=== PATIENT | female | born 1935 | race Caucasian/White ===

== ENCOUNTER 2018-07-02 14:08 | Emergency (ER) | payer MEDICARE, OTHER ==
[2018-07-02] MEDS ORDERED: Sodium Chloride 0.9% 10 ML Syringe FLUSH PRN (14:28)
[2018-07-02] MEDS ORDERED: Aspirin 81 MG Tab.Chew PO ONE (14:36)
[2018-07-02 14:50] LABS: CHLORIDE,CL 100 mmol/L (98-107); SODIUM,NA 134 mmol/L (136-145)
--- NOTE | 2018-07-02 15:39 | EDM.PDOC ---
ED HPI GENERAL MEDICAL PROBLEM - General Chief Complaint: Chest Pain Stated Complaint: weakness, chest pain Time Seen by Provider: 07/02/18 14:12 Source of Information: Reports: Patient History Limitations: Reports: No Limitations - History of Present Illness INITIAL COMMENTS - FREE TEXT/NARRATIVE: Patient is a 83-year-old female who is seen in the ER with a three-day history of chest discomfort went this morning to her primary care was referred to the ER for evaluation at this time patient was recently hospitalized at [facility] has history of MLL Onset: Gradual Duration: Day(s): Location: Reports: Chest, Generalized Quality: Reports: Ache, Pressure Severity: Moderate Improves with: Reports: None Worsens with: Reports: None Context: Reports: Other (Chest pain) Associated Symptoms: Reports: Chest Pain, Shortness of Breath (With activity), Weakness 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 upon 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 to ED Chest Pain Score (Numeric/FACES): 4 - Related Data Allergies Allergy/AdvReac Type Severity Reaction Status Date / Time bacitracin Allergy Rash Verified 07/02/18 14:32 [From Neosporin ([id number])] bacitracin zinc Allergy Rash Verified 07/02/18 14:32 [From Neosporin ([id number])] neomycin sulfate Allergy Rash Verified 07/02/18 14:32 [From Neosporin ([id number])] polymyxin B Allergy Rash Verified 07/02/18 14:32 [From Neosporin ([id number])] Home Meds: Home Meds Folic Acid 1 mg PO DAILY 06/11/14 [History] Calcium Carbonate [Calcium] 1,000 mg PO DAILY 04/08/15 [History] Levothyroxine 25 mcg PO ACBREAKFAST 04/08/15 [History] Acetaminophen/Diphenhydramine [Tylenol Pm Ex-Strength Caplet] 1 each PO BEDTIME PRN 04/09/15 [History] Cholecalciferol (Vitamin D3) [Vitamin D3] 2,000 unit PO BID 04/09/15 [History] Allopurinol [Zyloprim] 100 mg PO DAILY 06/22/17 [History] Magnesium Oxide [Magnesium] 1 tab PO BID 06/22/17 [History] Benzonatate [Tessalon Perle] 1 cap PO Q8HR 05/23/18 [History] Hydrocodone/Acetaminophen [Hydrocodon-Acetaminophen 5-325] 1 tab PO Q6HR PRN [History] Spironolactone [Aldactone] 25 mg PO QAM 05/23/18 [History] Past Medical History HEENT History: Reports: Cataract, Impaired Vision Other HEENT History: Wears glasses Cardiovascular History: Reports: High Cholesterol, Hypertension, Other (See Below) Other Cardiovascular History: Leakly heart valve Respiratory History: Reports: Bronchitis, Recurrent, Pneumonia, Recurrent Genitourinary History: Reports: Other (See Below) Other Genitourinary History: CKD. Stress Incontinence Musculoskeletal History: Reports: Arthritis, RA Neurological History: Reports: None Endocrine/Metabolic History: Reports: Hypothyroidism Hematologic History: Reports: Idiopathic Thrombocytopenia Oncologic (Cancer) History: Reports: Leukemia Other Oncologic History: CLL - Past Surgical History HEENT Surgical History: Reports: Adenoidectomy, Tonsillectomy Other Respiratory Surgeries/Procedures: surgery to remove the infection from lining of lungs GI Surgical History: Reports: Cholecystectomy, Colonoscopy, EGD, Polypectomy Social & Family History - Caffeine Use Caffeine Use: Reports: Coffee - Living Situation & Occupation Living situation: Reports: Occupation: Retired ED ROS GENERAL - Review of Systems Review Of Systems: See Below Constitutional: Reports: Weakness. Denies: Weight Gain HEENT: Reports: No Symptoms Respiratory: Reports: Shortness of Breath Cardiovascular: Reports: Chest Pain Endocrine: Reports: No Symptoms GI/Abdominal: Reports: No Symptoms : Reports: No Symptoms Musculoskeletal: Reports: No Symptoms Skin: Reports: No Symptoms Neurological: Reports: No Symptoms Psychiatric: Reports: No Symptoms ED EXAM, GENERAL - Physical Exam Exam: See Below Exam Limited By: No Limitations General Appearance: Alert, WD/WN, No Apparent Distress Ears: Normal External Exam, Normal Canal, Hearing Grossly Normal, Normal TMs Nose: Normal Inspection, Normal Mucosa, No Blood Throat/Mouth: Normal Inspection, Normal Lips, Normal Teeth, Normal Gums, Normal Oropharynx, Normal Voice, No Airway Compromise Head: Atraumatic, Normocephalic Neck: Normal Inspection, Supple, Non-Tender, Full Range of Motion Respiratory/Chest: No Respiratory Distress, Decreased Breath Sounds, Rales, Other (Hypoxia patient on 4 L) Cardiovascular: Regular Rate, Rhythm, Systolic Murmur (Aortic systolic murmur 2/ 6) GI/Abdominal: Normal Bowel Sounds, Soft, Non-Tender, No Organomegaly, No Distention, No Abnormal Bruit, No Mass (Female) Exam: Deferred Rectal (Female) Exam: Deferred Back Exam: Normal Inspection, Full Range of Motion, NT Extremities: Pedal Edema Neurological: Alert, Oriented, CN II-XII Intact, Normal Cognition, Normal Gait, Normal Reflexes, No Motor/Sensory Deficits Psychiatric: Normal Affect, Normal Mood Skin Exam: Warm, Dry, Intact, Normal Color, No Rash Lymphatic: No Adenopathy Course - Vital Signs Last Recorded V/S: Last Vital Signs Temp 97.7 F 07/02/18 14:33 Pulse 58 L 07/02/18 15:21 Resp 20 07/02/18 15:21 BP 105/51 L 07/02/18 15:21 Pulse Ox 97 07/02/18 15:21 - Orders/Labs/Meds Orders: Active Orders 24 hr Category Date Time Status Cardiac Monitoring [RC] . DIRECTED Care 07/02/18 14:27 Active EKG Documentation Completion [RC] ASDIRECTED Care 07/02/18 14:14 Active Oxygen Therapy Adult [Oxygen Therapy, ED] [RC] Care 07/02/18 14:28 Active ASDIRECTED Peripheral IV Care [RC] . DIRECTED Care 07/02/18 14:28 Active Chest 1V Frontal [CR] Stat Exams 07/02/18 14:23 Taken CULTURE BLOOD [BC] Stat Lab 07/02/18 15:45 Received CULTURE BLOOD [BC] Stat Lab 07/02/18 15:59 Received FREE T3 [REF] Stat Lab 07/02/18 14:20 Received Dextrose 5%-0.45% NaCl [Dextrose 5%-1/2 NS] 1,000 ml Med 07/02/18 16:00 Active IV ASDIRECTED Furosemide [Lasix] Med 07/03/18 08:00 Active 40 mg IVPUSH DAILY Sodium Chloride 0.9% [Saline Flush] Med 07/02/18 14:28 Active 10 ml FLUSH ASDIRECTED PRN Blood Culture x2 Reflex Set [OM.PC] Stat Oth 07/02/18 15:32 Ordered Peripheral IV Insertion Adult [OM.PC] Routine Oth 07/02/18 14:28 Ordered Medication Orders Furosemide (Lasix) 40 mg IVPUSH DAILY GUME Dextrose/Sodium Chloride (Dextrose 5%-1/2 Ns) 1,000 mls @ 125 mls/hr IV ASDIRECTED GUME Sodium Chloride (Saline Flush) 10 ml FLUSH ASDIRECTED PRN PRN Reason: Keep Vein Open Labs: Laboratory Tests 07/02/18 07/02/18 07/02/18 Range/Units 14:20 14:20 14:20 WBC 140.3 H* (4.0-10.2) K/uL RBC 4.09 (3.77-5.09) M/uL Hgb 11.5 L D (11.7-15.5) g/dL Hct 36.3 (34.0-46.0) % MCV 88.8 D (84.0-98.0) fL MCH 28.1 L (28.2-33.3) pg MCHC 31.7 (31.7-36.0) g/dL RDW 27.1 H (11.2-14.1) % Plt Count 9 L* D (150-350) K/uL Add Manual Diff Yes Neutrophils % (Manual) 28 Band Neutrophils % 12 Lymphocytes % (Manual) Cancelled Atypical Lymphs % Cancelled Immat Monocytes % (Man) Cancelled Monocytes % (Manual) 60 Eosinophils % (Manual) Cancelled Basophils % (Manual) Cancelled Metamyelocytes % Cancelled Myelocytes % Cancelled Promyelocytes % Cancelled Blast Cells % Cancelled Plasma Cell % (Manual) Cancelled Immature Gran # Cancelled Absolute Neutrophils 56.1200 Absolute Seg Neuts Cancelled Band Neutrophils # Cancelled Lymphocytes # (Manual) Cancelled Monocytes # (Manual) 84.1800 Eosinophils # (Manual) Cancelled Basophils # (Manual) Cancelled Absolute Metamyelocyte Cancelled Absolute Myelocytes Cancelled Absolute Promyelocytes Cancelled Absolute Plasma Cells Cancelled Nucleated RBCs Cancelled Differential Comment Cancelled Pathologist Review Cancelled Bilobed Neuts Cancelled Hypersegmented Neuts Cancelled Variant Lymphocytes Cancelled Atypical Lymphocytes Cancelled Abnormal Lymphocytes Cancelled Reactive Lymphocytes Cancelled Vacuolated Monocytes Cancelled Absolute Blast Cells Cancelled Toxic Granulation Cancelled WBC Morphology Comment Cancelled Plt Morphology Comment Cancelled Polychromasia Moderate Hypochromasia Cancelled Poikilocytosis Cancelled Basophilic Stippling Cancelled Anisocytosis Marked Microcytosis Cancelled Macrocytosis Cancelled Spherocytes Cancelled Micro Spherocytes Cancelled Siderocytes Cancelled Sickle Cells Cancelled Target Cells Cancelled Tear Drop Cells Cancelled Ovalocytes Cancelled Stomatocytes Cancelled Harrah Cells Cancelled Elliptocytes Cancelled Acanthocytes (Spur) Cancelled Rouleaux Cancelled Schistocytes Cancelled RBC Morph Comment Cancelled Smear Path Review Cancelled PT 12.0 (9.5-12.0) SEC INR 1.1 APTT 29.2 (21.0-31.3) SEC D-Dimer, Quantitative (0-400) ng/mL Sodium 134 L (136-145) mmol/L Potassium 5.3 H (3.5-5.1) mmol/L Chloride 100 (98-107) mmol/L Carbon Dioxide 25.4 (21.0-32.0) mmol/L BUN 88 H D (7-18) mg/dL Creatinine 1.75 H (0.51-1.17) mg/dL Est Cr Clr Drug Dosing TNP Estimated GFR (MDRD) 28 mL/min Glucose 94 (74-106) mg/dL Lactic Acid (0.4-2.0) mmol/L Calcium 9.0 (8.5-10.1) mg/dL Magnesium 2.4 (1.8-2.4) mg/dL Total Bilirubin 0.9 (0.2-1.0) mg/dL AST 91 H (15-37) U/L ALT 39 (12-78) U/L Alkaline Phosphatase 254 H (46-116) IU/L Creatine Kinase 37 (26-308) U/L Creatine Kinase Index 1.9 (0.0-2.5) % CK-MB (CK-2) 0.70 (0.00-3.60) ng/mL Troponin I 0.000 (0.000-0.056) ng/mL NT-Pro-B Natriuret Pep 4121 H (0-125) pg/mL Total Protein 7.3 (6.4-8.2) g/dL Albumin 2.7 L (3.4-5.0) g/dL Free T4 (0.76-1.46) ng/dL TSH, Ultra Sensitive 28.535 H (0.358-3.740) mIU/mL Slides for Path Review Yes 07/02/18 07/02/18 07/02/18 Range/Units 14:20 14:20 14:20 WBC (4.0-10.2) K/uL RBC (3.77-5.09) M/uL Hgb (11.7-15.5) g/dL Hct (34.0-46.0) % MCV (84.0-98.0) fL MCH (28.2-33.3) pg MCHC (31.7-36.0) g/dL RDW (11.2-14.1) % Plt Count (150-350) K/uL Add Manual Diff Neutrophils % (Manual) Band Neutrophils % Lymphocytes % (Manual) Atypical Lymphs % Immat Monocytes % (Man) Monocytes % (Manual) Eosinophils % (Manual) Basophils % (Manual) Metamyelocytes % Myelocytes % Promyelocytes % Blast Cells % Plasma Cell % (Manual) Immature Gran # Absolute Neutrophils Absolute Seg Neuts Band Neutrophils # Lymphocytes # (Manual) Monocytes # (Manual) Eosinophils # (Manual) Basophils # (Manual) Absolute Metamyelocyte Absolute Myelocytes Absolute Promyelocytes Absolute Plasma Cells Nucleated RBCs Differential Comment Pathologist Review Bilobed Neuts Hypersegmented Neuts Variant Lymphocytes Atypical Lymphocytes Abnormal Lymphocytes Reactive Lymphocytes Vacuolated Monocytes Absolute Blast Cells Toxic Granulation WBC Morphology Comment Plt Morphology Comment Polychromasia Hypochromasia Poikilocytosis Basophilic Stippling Anisocytosis Microcytosis Macrocytosis Spherocytes Micro Spherocytes Siderocytes Sickle Cells Target Cells Tear Drop Cells Ovalocytes Stomatocytes Harrah Cells Elliptocytes Acanthocytes (Spur) Rouleaux Schistocytes RBC Morph Comment Smear Path Review PT (9.5-12.0) SEC INR APTT (21.0-31.3) SEC D-Dimer, Quantitative 840 H (0-400) ng/mL Sodium (136-145) mmol/L Potassium (3.5-5.1) mmol/L Chloride (98-107) mmol/L Carbon Dioxide (21.0-32.0) mmol/L BUN (7-18) mg/dL Creatinine (0.51-1.17) mg/dL Est Cr Clr Drug Dosing Estimated GFR (MDRD) mL/min Glucose (74-106) mg/dL Lactic Acid 2.0 (0.4-2.0) mmol/L Calcium (8.5-10.1) mg/dL Magnesium (1.8-2.4) mg/dL Total Bilirubin (0.2-1.0) mg/dL AST (15-37) U/L ALT (12-78) U/L Alkaline Phosphatase (46-116) IU/L Creatine Kinase (26-308) U/L Creatine Kinase Index (0.0-2.5) % CK-MB (CK-2) (0.00-3.60) ng/mL Troponin I (0.000-0.056) ng/mL NT-Pro-B Natriuret Pep (0-125) pg/mL Total Protein (6.4-8.2) g/dL Albumin (3.4-5.0) g/dL Free T4 1.08 (0.76-1.46) ng/dL TSH, Ultra Sensitive (0.358-3.740) mIU/mL Slides for Path Review Meds: Medications Generic Name Dose Route Start Last Admin Trade Name Freq PRN Reason Stop Dose Admin Furosemide 40 mg 07/03/18 08:00 Lasix IVPUSH DAILY GUME Dextrose/Sodium Chloride 1,000 mls @ 125 mls/hr 07/02/18 16:00 Dextrose 5%-1/2 Ns IV ASDIRECTED GUME Sodium Chloride 10 ml 07/02/18 14:28 Saline Flush FLUSH ASDIRECTED PRN Keep Vein Open Discontinued Medications Generic Name Dose Route Start Last Admin Trade Name Freq PRN Reason Stop Dose Admin Aspirin 324 mg 07/02/18 14:36 07/02/18 14:38 Aspirin PO 07/02/18 14:37 162 mg ONETIME ONE Administration Departure - Departure Time of Disposition: 15:53 Disposition: DC/Tfer to [facility] 02 Reason for Transfer *Q: Other (per oncologist request due to hx of MLL) Condition: Good Clinical Impression: Thrombocytopenia, CHF, Congestive heart failure Chest pain Qualifiers: Chest pain type: other chest pain Qualified Code(s): R07.89 - Other chest pain ; R07.8 - Other chest pain Referrals: Robert Faulkner PA [Primary Care Provider] - Forms: ED Department Discharge Care Plan Goals: Patient transferred to [facility] per oncologist request for further workup, evaluation, and treatment. - Problem List & Annotations (1) Chest pain SNOMED Code(s): 71753447 Code(s): R07.9 - CHEST PAIN, UNSPECIFIED Status: Acute Current Visit: Yes (2) CHF, Congestive heart failure SNOMED Code(s): 60282721 Code(s): I50.9 - HEART FAILURE, UNSPECIFIED Status: Acute Priority: High Current Visit: Yes Onset Date: 06/11/14 Annotation/Comment:: Mild CHF by chest x-ray and BNP with chest x-ray revealed no acute changes I will give her Lasix 40 mg now (3) Hypothyroidism determined by thyroid function test SNOMED Code(s): 37485643 Code(s): E03.9 - HYPOTHYROIDISM, UNSPECIFIED; R94.6 - ABNORMAL RESULTS OF THYROID FUNCTION STUDIES Status: Acute Current Visit: Yes Annotation/ Comment:: We'll wait to the T3 and T4 are back before changing her medications (4) Thrombocytopenia SNOMED Code(s): 157211072 Code(s): D69.6 - THROMBOCYTOPENIA, UNSPECIFIED Status: Acute Current Visit: Yes (5) Hyperkalemia SNOMED Code(s): 29676861 Code(s): E87.5 - HYPERKALEMIA Status: Acute Current Visit: Yes Annotation/Comment:: Lasix 40 IV now - Problem List Review Problem List Initiated/Reviewed/Updated: Yes - My Orders Last 24 Hours: My Active Orders 07/02/18 14:14 EKG Documentation Completion [RC] ASDIRECTED 07/02/18 14:20 FREE T3 [REF] Stat 07/02/18 14:23 Chest 1V Frontal [CR] Stat 07/02/18 14:27 Cardiac Monitoring [RC] . DIRECTED 07/02/18 14:28 Oxygen Therapy Adult [Oxygen Therapy, ED] [RC] ASDIRECTED Peripheral IV Care [RC] . DIRECTED Sodium Chloride 0.9% [Saline Flush] 10 ml FLUSH ASDIRECTED PRN Peripheral IV Insertion Adult [OM.PC] Routine 07/02/18 15:32 Blood Culture x2 Reflex Set [OM.PC] Stat 07/02/18 15:45 CULTURE BLOOD [BC] Stat 07/02/18 15:59 CULTURE BLOOD [BC] Stat 07/02/18 16:00 Dextrose 5%-0.45% NaCl [Dextrose 5%-1/2 NS] 1,000 ml IV ASDIRECTED 07/03/18 08:00 Furosemide [Lasix] 40 mg IVPUSH DAILY - Assessment/Plan Admission H&P: Please use this note as an admission H&P Last 24 Hours: My Active Orders 07/02/18 14:14 EKG Documentation Completion [RC] ASDIRECTED 07/02/18 14:20 FREE T3 [REF] Stat 07/02/18 14:23 Chest 1V Frontal [CR] Stat 07/02/18 14:27 Cardiac Monitoring [RC] . DIRECTED 07/02/18 14:28 Oxygen Therapy Adult [Oxygen Therapy, ED] [RC] ASDIRECTED Peripheral IV Care [RC] . DIRECTED Sodium Chloride 0.9% [Saline Flush] 10 ml FLUSH ASDIRECTED PRN Peripheral IV Insertion Adult [OM.PC] Routine 07/02/18 15:32 Blood Culture x2 Reflex Set [OM.PC] Stat 07/02/18 15:45 CULTURE BLOOD [BC] Stat 07/02/18 15:59 CULTURE BLOOD [BC] Stat 07/02/18 16:00 Dextrose 5%-0.45% NaCl [Dextrose 5%-1/2 NS] 1,000 ml IV ASDIRECTED 07/03/18 08:00 Furosemide [Lasix] 40 mg IVPUSH DAILY Plan: Discuss with hematology and Dr. Reis hospitalist will transfer to [facility] will start her on Lasix 49 and continue monitoring
[2018-07-02] MEDS ORDERED: Dextrose 5%-0.45% NaCl 1,000 ML IV SCH (16:00)
[2018-07-02 20:45] VITALS: BP 101/51
[2018-07-03] MEDS ORDERED: Furosemide 40 MG/4 ML VIAL IVPUSH SCH (08:00)
== END 2018-07-02 16:00 ==
LOC: LL.ED 14:08
DX: I11.0 Hypertensive heart disease with heart failure (principal); I50.9 Heart failure, unspecified; D69.6 Thrombocytopenia, unspecified; Z88.8 Allergy status to other drugs, medicaments and biological substances; Z88.1 Allergy status to other antibiotic agents; Z79.899 Other long term (current) drug therapy
CPT/HCPCS: 36000; 36415; 71045; 80053; 82550; 82553; 83605; 83735; 83880; 84439; 84443; 84481; 84484; 85025; 85379; 85610; 85730; 87040; 93005; 99285; A9270-GY

== ENCOUNTER 2018-07-09 18:49 | Inpatient (IN) | payer MEDICARE, OTHER ==
--- NOTE | 2018-07-09 19:43 | EDM.PDOC ---
ED HPI GENERAL MEDICAL PROBLEM - General Chief Complaint: Respiratory Problem Stated Complaint: SOB Time Seen by Provider: 07/09/18 19:29 Source of Information: Reports: Patient History Limitations: Reports: No Limitations - History of Present Illness INITIAL COMMENTS - FREE TEXT/NARRATIVE: Patient comes to the ER, brought by , for complaint of SOB. Seen for similar complaint (in addition to weakness) last week Jul 02. Transferred to [facility] for evaluation. Patient said that she was seen by multiple people. She was informed that there was nothing more that could be done for her CLL by Heme-Onc. Cardiology made no changes. Nephrology was recommending additional testing but patient says at this point she is interested in comfort care. She denies any other changes. Uncertain if she has lost any additional weight recently. Admits that food is of no interest to her and has no appeal. No fevers/chills. No pain complaints. Denies HEENT changes. No cough/sputum production. No chest pain/palpitation. Does have increasing lower leg edema. No bowel/bladder changes. Does not produce much in the way of bowel movements. Denies neuro changes/focal weakness. Is not on home O2. Generalized Pain Score (Numeric/FACES): 6 - Related Data Allergies Allergy/AdvReac Type Severity Reaction Status Date / Time bacitracin Allergy Rash Verified 07/09/18 18:49 [From Neosporin ([id number])] bacitracin zinc Allergy Rash Verified 07/09/18 18:49 [From Neosporin ([id number])] neomycin sulfate Allergy Rash Verified 07/09/18 18:49 [From Neosporin ([id number])] polymyxin B Allergy Rash Verified 07/09/18 18:49 [From Neosporin ([id number])] Home Meds: Home Meds Folic Acid 1 mg PO DAILY 06/11/14 [History] Levothyroxine 25 mcg PO ACBREAKFAST 04/08/15 [History] Allopurinol [Zyloprim] 100 mg PO DAILY 06/22/17 [History] Magnesium Oxide [Magnesium] 1 tab PO BID 06/22/17 [History] Spironolactone [Aldactone] 25 mg PO QAM 05/23/18 [History] Furosemide 20 mg PO DAILY 07/09/18 [History] Metoprolol Succinate [Toprol XL] 25 mg PO DAILY 07/09/18 [History] Past Medical History HEENT History: Reports: Cataract, Impaired Vision Other HEENT History: Wears glasses Cardiovascular History: Reports: High Cholesterol, Hypertension, Other (See Below) Other Cardiovascular History: Leaky heart valve Respiratory History: Reports: Bronchitis, Recurrent, Pneumonia, Recurrent Genitourinary History: Reports: Other (See Below) Other Genitourinary History: CKD. Stress Incontinence Musculoskeletal History: Reports: Arthritis, RA Neurological History: Reports: None Endocrine/Metabolic History: Reports: Hypothyroidism Hematologic History: Reports: Idiopathic Thrombocytopenia Oncologic (Cancer) History: Reports: Leukemia Other Oncologic History: CLL - Past Surgical History HEENT Surgical History: Reports: Adenoidectomy, Tonsillectomy Other Respiratory Surgeries/Procedures: surgery to remove the infection from lining of lungs GI Surgical History: Reports: Cholecystectomy, Colonoscopy, EGD, Polypectomy Social & Family History - Family History Family Medical History: Noncontributory - Tobacco Use Smoking Status *Q: Never Smoker - Caffeine Use Caffeine Use: Reports: Coffee - Alcohol Use Alcohol Use History: No - Recreational Drug Use Recreational Drug Use: No Drug Use in Last 12 Months: No - Living Situation & Occupation Living situation: Reports: Occupation: Retired ED ROS GENERAL - Review of Systems Review Of Systems: ROS reveals no pertinent complaints other than HPI. ED EXAM, GENERAL - Physical Exam Exam: See Below Exam Limited By: No Limitations General Appearance: Alert, No Apparent Distress, Cachetic Eye Exam: Bilateral Eye: EOMI, PERRL Ears: Normal External Exam, Normal Canal, Hearing Grossly Normal Nose: No: Nasal Deformity, Nasal Swelling, Nasal Drainage Throat/Mouth: Normal Inspection, Normal Lips, Normal Teeth, Normal Voice, No Airway Compromise Head: Atraumatic, Normocephalic Neck: Supple, Non-Tender Respiratory/Chest: No Respiratory Distress, Lungs Clear, Normal Breath Sounds, No Accessory Muscle Use Cardiovascular: Regular Rate, Rhythm, No Murmur Peripheral Pulses: 1+: Radial (L), Radial (R), Dorsalis Pedis (L), Dorsalis Pedis (R) GI/Abdominal: Soft, Non-Tender, Abnormal Bowel Sounds (decreased throughout) (Female) Exam: Deferred Rectal (Female) Exam: Deferred Back Exam: Other (sore over tailbone area). No: CVA Tenderness (L), CVA Tenderness (R), Muscle Spasm, Paraspinal Tenderness, Vertebral Tenderness Extremities: Non-Tender, Normal Capillary Refill, Pedal Edema (moderate, bilateral ankles/feet) Neurological: Alert, Oriented, Other (equal strength bilaterally. Gait not tested) Psychiatric: Normal Affect, Normal Mood Skin Exam: Warm, Dry, Intact, Normal Color EKG INTERPRETATION EKG Date: 07/09/18 Time: 18:55 Rhythm: Other (Sinus bradycardia) Rate (Beats/Min): 59 [place]: Normal P-Wave: Present QRS: Normal ST-T: Normal QT: Normal Comparison: NA - No Prior EKG Course - Orders/Labs/Meds Orders: Active Orders 24 hr Category Date Time Status EKG Documentation Completion [RC] ASDIRECTED Care 07/09/18 19:03 Active CXR [Chest 2V] [CR] Stat Exams 07/09/18 19:04 Ordered CBC WITH AUTO DIFF [HEME] Stat Lab 07/09/18 19:04 Ordered CK W CKMB [CHEM] Stat Lab 07/09/18 19:04 Ordered CMP [COMPREHENSIVE METABOLIC PN,CMP] [CHEM] Stat Lab 07/09/18 19:04 Ordered MANUAL DIFFERENTIAL QA/NC [HEME] Stat Lab 07/09/18 19:40 Results PRO B-TYPE NATRIUR PEPT,BNPPRO [CHEM] Stat Lab 07/09/18 19:04 Ordered TROPONIN I [CHEM] Stat Lab 07/09/18 19:04 Ordered UA W/MICROSCOPIC [URIN] Stat Lab 07/09/18 19:05 Ordered Labs: Laboratory Tests 07/09/18 Range/Units 19:40 WBC 166.4 H* (4.0-10.2) K/uL RBC 3.82 (3.77-5.09) M/uL Hgb 11.1 L (11.7-15.5) g/dL Hct 35.4 (34.0-46.0) % MCV 92.7 D (84.0-98.0) fL MCH 29.1 (28.2-33.3) pg MCHC 31.4 L (31.7-36.0) g/dL RDW 29.0 H (11.2-14.1) % Plt Count 10 L* (150-350) K/uL Add Manual Diff Yes - Radiology Interpretation Free Text/Narrative:: Chest Xray did not show evidence of CHF exacerbation/pneumothorax/pneumonia - Re-Assessments/Exams Free Text/Narrative Re-Assessment/Exam: 07/09/18 20:55 Patient noted to have significant elevation of WBC at 166, low platelets of 10, proBNP elevated at 5581, and potassium elevated at 6.2. Bun and Cr elevated at 11 and 2.09 respectively. This reflects a worsening of renal function. Transfer to [facility] discussed with patient and she refused. Patient prefers to stay here and be on comfort care. DNR/DNI. Refuses Kayexalate for the hyperkalemia tonight. Is ok with receiving IV fluids. DDimer added to labs as PE is possible, however given the very low platelets this is unlikely. If positive, would need to refer patient to [place] for additional workup given her poor renal function and inability to have IV contrast. Again, patient is currently refusing transfer and prefers comfort care. Is willing to visit with hospice care. Departure - Departure Time of Disposition: 20:30 Disposition: Admitted As Inpatient 67 Clinical Impression: CLL (chronic lymphocytic leukemia), Hypoxemia, CHF, Congestive heart failure, Thrombocytopenia, Hyperkalemia, Renal insufficiency - Discharge Information *PRESCRIPTION DRUG MONITORING PROGRAM REVIEWED*: Not Applicable *COPY OF PRESCRIPTION DRUG MONITORING REPORT IN PATIENT CHRISTINE: Not Applicable Referrals: Robert Faulkner PA [Primary Care Provider] - Forms: ED Department Discharge - Problem List & Annotations (1) CLL (chronic lymphocytic leukemia) SNOMED Code(s): 96295766 Code(s): C91.90 - LYMPHOID LEUKEMIA, UNSPECIFIED NOT HAVING ACHIEVED REMISSION Status: Chronic Priority: High Current Visit: Yes Annotation/ Comment:: Patient declines further care for CLL (2) Failure to thrive SNOMED Code(s): 62017332 Code(s): NNK7989 - Status: Chronic Priority: High Current Visit: Yes Annotation/Comment:: Weight loss, decreased PO intake, weakness. Comfort care. (3) CHF, Congestive heart failure SNOMED Code(s): 86751501 Code(s): I50.9 - HEART FAILURE, UNSPECIFIED Status: Chronic Priority: Low Current Visit: Yes Onset Date: 06/11/14 Annotation/Comment:: Hx CHF. Diuretic noted to increase patient's BUN/Cr. BNP elevated. Will continue cautious diuretic administration however will be unable to increase dose given kidney issues. Review of [facility] chart from her recent admission showed quick elevation in Bun/Cr whenever diuretics increased. (4) Hyperkalemia SNOMED Code(s): 20814679 Code(s): E87.5 - HYPERKALEMIA Status: Acute Priority: High Current Visit: Yes Annotation/Comment:: Suspect secondary to patient's CKD and poor PO intake. Patient declines Kayexalate. Will give IV fluids cautiously given hx of CHF. (5) Hypoxemia SNOMED Code(s): 234234694 Code(s): R09.02 - HYPOXEMIA Status: Acute Priority: High Current Visit : Yes Annotation/Comment:: Suspect secondary to patient's CHF and CLL. Improved with O2 supplementation. (6) Thrombocytopenia SNOMED Code(s): 026922815 Code(s): D69.6 - THROMBOCYTOPENIA, UNSPECIFIED Status: Chronic Priority: Low Current Visit: Yes Annotation/Comment:: Observe. Comfort care. (7) HTN, Benign hypertension SNOMED Code(s): 71701945 Code(s): I10 - ESSENTIAL (PRIMARY) HYPERTENSION Status: Chronic Priority : Medium Current Visit: No Annotation/Comment:: currently stable (8) Hypothyroid SNOMED Code(s): 40649865 Code(s): E03.9 - HYPOTHYROIDISM, UNSPECIFIED Status: Chronic Priority: Low Current Visit: Yes Annotation/Comment:: Most recent labs from last week. Recheck in one month. Qualifiers: Hypothyroidism type: unspecified Qualified Code(s): E03.9 - Hypothyroidism , unspecified (9) Need for comfort care SNOMED Code(s): 165036734, 762577478 Code(s): ALU6292 - Status: Acute Priority: High Current Visit: Yes Annotation/Comment:: Consult Hospice tomorrow (10) Chronic kidney disease SNOMED Code(s): 564773012 Code(s): N18.9 - CHRONIC KIDNEY DISEASE, UNSPECIFIED Status: Chronic Priority: Low Current Visit: Yes Annotation/Comment:: Comfort measures. Qualifiers: Chronic kidney disease stage: stage 3 (moderate) Qualified Code(s): N18.3 - Chronic kidney disease, stage 3 (moderate) - Problem List Review Problem List Initiated/Reviewed/Updated: Yes - My Orders Last 24 Hours: My Active Orders 07/09/18 19:03 EKG Documentation Completion [RC] ASDIRECTED 07/09/18 19:04 CXR [Chest 2V] [CR] Stat CBC WITH AUTO DIFF [HEME] Stat CK W CKMB [CHEM] Stat CMP [COMPREHENSIVE METABOLIC PN,CMP] [CHEM] Stat PRO B-TYPE NATRIUR PEPT,BNPPRO [CHEM] Stat TROPONIN I [CHEM] Stat 07/09/18 19:05 UA W/MICROSCOPIC [URIN] Stat 07/09/18 19:40 MANUAL DIFFERENTIAL QA/NC [HEME] Stat - Assessment/Plan Admission H&P: Please use this note as an admission H&P Last 24 Hours: My Active Orders 07/09/18 19:03 EKG Documentation Completion [RC] ASDIRECTED 07/09/18 19:04 CXR [Chest 2V] [CR] Stat CBC WITH AUTO DIFF [HEME] Stat CK W CKMB [CHEM] Stat CMP [COMPREHENSIVE METABOLIC PN,CMP] [CHEM] Stat PRO B-TYPE NATRIUR PEPT,BNPPRO [CHEM] Stat TROPONIN I [CHEM] Stat 07/09/18 19:05 UA W/MICROSCOPIC [URIN] Stat 07/09/18 19:40 MANUAL DIFFERENTIAL QA/NC [HEME] Stat Assessment:: as above Plan: as above. Anticipate 3-4 day stay inpatient while the above issues are addressed and hospice care explored.
[2018-07-09] MEDS ORDERED: Ondansetron 4 MG Tab.DIS PO PRN (21:27)
[2018-07-09] MEDS ORDERED: Ondansetron 4 MG/2 ML SDV IVPUSH PRN (21:27)
[2018-07-09] MEDS ORDERED: Bisacodyl 5 MG Tab PO PRN (21:27)
[2018-07-09] MEDS ORDERED: Sennosides 8.6 MG Tab PO PRN (21:27)
[2018-07-09] MEDS ORDERED: LORazepam 2 MG/ML SDV IV PRN (21:27)
[2018-07-09] MEDS ORDERED: Albuterol/Ipratropium 3.0-0.5 MG/3 ML Neb Soln NEB PRN (21:27)
[2018-07-09] MEDS ORDERED: Acetaminophen/HYDROcodone 325-5 MG Tab PO PRN (21:27)
[2018-07-09] MEDS ORDERED: Sodium Chloride 0.9% 1,000 ML IV ONE (21:34)
[2018-07-09] MEDS: Morphine 2 MG/ML Syringe IVPUSH PRN (22:33)
[2018-07-10] MEDS: Morphine 2 MG/ML Syringe IVPUSH PRN ×4 (00:17→11:29)
[2018-07-10] MEDS: Levothyroxine 25 MCG Tab PO SCH (08:16)
[2018-07-10] MEDS: Furosemide 20 MG Tab PO SCH (08:16)
[2018-07-10] MEDS: Magnesium Oxide 400 MG Tab PO SCH ×2 (08:16→17:07)
[2018-07-10] MEDS: Spironolactone 25 MG Tab PO SCH (08:16)
[2018-07-10] MEDS: Allopurinol 100 MG Tab PO SCH (08:17)
[2018-07-10] MEDS: Sodium Chloride 0.9% 10 ML Syringe FLUSH PRN (11:29)
--- NOTE | 2018-07-10 14:38 | PCM.PN ---
- General Info Date of Service: 07/10/18 Admission Dx/Problem (Free Text): Admitted for treatment of hyperkalemia, dehydration, and weakness secondary to advancing CLL. Hypoxixia. Worsening renal function. Subjective Update: Patient feels more comfortable. MS helping with pain and shortness of breath. Able to eat today. No bowel movement. Urinating ok. Functional Status: Reports: Pain Controlled, Tolerating Diet, Urinating - Review of Systems General: Reports: Weakness, Fatigue, Appetite (poor). Denies: Fever, Chills, Night Sweats HEENT: Reports: No Symptoms Pulmonary: Reports: Shortness of Breath. Denies: Pleuritic Chest Pain, Cough, Sputum, Hemoptysis, Wheezing Cardiovascular: Reports: Dyspnea on Exertion, Edema. Denies: Chest Pain, Palpitations, PND, Lightheadedness Gastrointestinal: Reports: Decreased Appetite Genitourinary: Reports: No Symptoms Musculoskeletal: Reports: Back Pain (gets sore in low back/buttock area from laying in bed) Skin: Reports: No Symptoms Neurological: Reports: Difficulty Walking (weakness/swollen feet) Psychiatric: Reports: No Symptoms - Patient Data Vitals - Most Recent: Last Vital Signs Temp 36.4 C 07/10/18 11:22 Pulse 58 L 07/10/18 11:22 Resp 18 07/10/18 11:22 BP 103/49 L 07/10/18 11:22 Pulse Ox 97 07/10/18 11:22 Weight - Most Recent: 43.227 kg I&O - Last 24 Hours: Intake & Output 07/09/18 07/10/18 07/10/18 22:59 06:59 14:59 Intake Total 100 1076 360 Output Total 200 200 200 Balance -100 876 160 Lab Results Last 24 Hours: Laboratory Results - last 24 hr 07/09/18 07/09/18 07/09/18 Range/Units 19:40 19:40 19:42 WBC 166.4 H* (4.0-10.2) K/uL RBC 3.82 (3.77-5.09) M/uL Hgb 11.1 L (11.7-15.5) g/dL Hct 35.4 (34.0-46.0) % MCV 92.7 D (84.0-98.0) fL MCH 29.1 (28.2-33.3) pg MCHC 31.4 L (31.7-36.0) g/dL RDW 29.0 H (11.2-14.1) % Plt Count 10 L* (150-350) K/uL Add Manual Diff Yes Neutrophils % (Manual) 16 Band Neutrophils % 13 Lymphocytes % (Manual) 68 Monocytes % (Manual) 3 Nucleated RBCs 32 D-Dimer, Quantitative 1150 H (0-400) ng/mL Sodium 137 (136-145) mmol/L Potassium 6.2 H* (3.5-5.1) mmol/L Chloride 103 (98-107) mmol/L Carbon Dioxide 21.1 (21.0-32.0) mmol/L BUN 111 H* (7-18) mg/dL Creatinine 2.09 H (0.51-1.17) mg/dL Est Cr Clr Drug Dosing 13.97 mL/min Estimated GFR (MDRD) 23 mL/min Glucose 124 H (74-106) mg/dL Calcium 8.7 (8.5-10.1) mg/dL Total Bilirubin 0.8 (0.2-1.0) mg/dL AST 91 H (15-37) U/L ALT 41 (12-78) U/L Alkaline Phosphatase 250 H (46-116) IU/L Creatine Kinase 84 (26-308) U/L Creatine Kinase Index 1.0 (0.0-2.5) % CK-MB (CK-2) 0.80 (0.00-3.60) ng/mL Troponin I 0.000 (0.000-0.056) ng/mL NT-Pro-B Natriuret Pep 5581 H (0-125) pg/mL Total Protein 6.8 (6.4-8.2) g/dL Albumin 2.5 L (3.4-5.0) g/dL Specimen Type Urine Color Urine Appearance Urine pH (5.0-9.0) Ur Specific [place] (1.005-1.030) Urine Protein (NEGATIVE) mg/dL Urine Glucose (UA) (NEGATIVE) mg/dL Urine Ketones (NEGATIVE) mg/dL Urine Occult Blood (NEGATIVE) Urine Nitrite (NEGATIVE) Urine Bilirubin (NEGATIVE) Urine Urobilinogen (0.2-1.0) E.U./dL Ur Leukocyte Esterase (NEGATIVE) Urine RBC /HPF Urine WBC /HPF Ur Epithelial Cells /LPF Urine Bacteria (NONE TO FEW) /HPF 07/09/18 07/10/18 07/10/18 Range/Units 21:00 10:10 10:10 WBC 156.4 H* (4.0-10.2) K/uL RBC 3.42 L (3.77-5.09) M/uL Hgb 10.1 L (11.7-15.5) g/dL Hct 31.9 L (34.0-46.0) % MCV 93.3 (84.0-98.0) fL MCH 29.5 (28.2-33.3) pg MCHC 31.7 (31.7-36.0) g/dL RDW 28.7 H (11.2-14.1) % Plt Count 20 L* (150-350) K/uL Add Manual Diff Neutrophils % (Manual) Band Neutrophils % Lymphocytes % (Manual) Monocytes % (Manual) Nucleated RBCs D-Dimer, Quantitative (0-400) ng/mL Sodium 138 (136-145) mmol/L Potassium 5.9 H* (3.5-5.1) mmol/L Chloride 105 (98-107) mmol/L Carbon Dioxide 21.7 (21.0-32.0) mmol/L BUN 104 H* (7-18) mg/dL Creatinine 2.00 H (0.51-1.17) mg/dL Est Cr Clr Drug Dosing 14.60 mL/min Estimated GFR (MDRD) 24 mL/min Glucose 97 (74-106) mg/dL Calcium 8.1 L (8.5-10.1) mg/dL Total Bilirubin (0.2-1.0) mg/dL AST (15-37) U/L ALT (12-78) U/L Alkaline Phosphatase (46-116) IU/L Creatine Kinase (26-308) U/L Creatine Kinase Index (0.0-2.5) % CK-MB (CK-2) (0.00-3.60) ng/mL Troponin I (0.000-0.056) ng/mL NT-Pro-B Natriuret Pep (0-125) pg/mL Total Protein (6.4-8.2) g/dL Albumin (3.4-5.0) g/dL Specimen Type Urinvoid Urine Color Yellow Urine Appearance Clear Urine pH 5.5 (5.0-9.0) Ur Specific [place] 1.010 (1.005-1.030) Urine Protein Trace H (NEGATIVE) mg/dL Urine Glucose (UA) Negative (NEGATIVE) mg/dL Urine Ketones Negative (NEGATIVE) mg/dL Urine Occult Blood Trace-lysed H (NEGATIVE) Urine Nitrite Negative (NEGATIVE) Urine Bilirubin Negative (NEGATIVE) Urine Urobilinogen 0.2 (0.2-1.0) E.U./dL Ur Leukocyte Esterase Negative (NEGATIVE) Urine RBC 0-5 /HPF Urine WBC 0-5 /HPF Ur Epithelial Cells Rare /LPF Urine Bacteria Few (NONE TO FEW) /HPF Med Orders - Current: Current Medications Hydrocodone Bitart/Acetaminophen ([place] 325-5 Mg) 1 tab PO Q4H PRN PRN Reason: Pain (moderate 4-6) Albuterol/Ipratropium (Duoneb 3.0-0.5 Mg/3 Ml) 3 ml NEB Q4H PRN PRN Reason: Dyspnea Allopurinol (Zyloprim) 100 mg PO DAILY [facility] Last Admin: 07/10/18 08:17 Dose: 100 mg Bisacodyl (Dulcolax) 5 mg PO DAILY PRN PRN Reason: Constipation Furosemide (Lasix) 20 mg PO DAILY [facility] Last Admin: 07/10/18 08:16 Dose: 20 mg Levothyroxine Sodium (Levothyroxine) 25 mcg PO ACBREAKFAST [facility] Last Admin: 07/10/18 08:16 Dose: 25 mcg Lorazepam (Ativan) 1 mg IV Q6H PRN PRN Reason: Nausea/Vomiting Magnesium Oxide (Magnesium Oxide) 400 mg PO BID [facility] Last Admin: 07/10/18 08:16 Dose: 400 mg Morphine Sulfate (Morphine) 2 mg IVPUSH Q2H PRN PRN Reason: Pain (severe 7-10) Last Admin: 07/10/18 11:29 Dose: 2 mg Ondansetron HCl (Zofran Odt) 4 mg PO Q6H PRN PRN Reason: Nausea/Vomiting Ondansetron HCl (Zofran) 4 mg IVPUSH Q6H PRN PRN Reason: Nausea/Vomiting Senna (Senna) 8.6 mg PO BID PRN PRN Reason: Constipation Sodium Chloride (Saline Flush) 10 ml FLUSH ASDIRECTED PRN PRN Reason: Keep Vein Open Last Admin: 07/10/18 11:29 Dose: 10 ml Spironolactone (Aldactone) 25 mg PO QAM [facility] Last Admin: 07/10/18 08:16 Dose: 25 mg Discontinued Medications Sodium Chloride (Normal Saline) 1,000 mls @ 100 mls/hr IV .BOLUS ONE Stop: 07/10/18 07:33 Last Admin: 07/09/18 22:33 Dose: 100 mls/hr - Exam Quality Assessment: Supplemental Oxygen, DVT Prophylaxis (patient refuses TEDs/ DVT prophylaxis). No: Skin Breakdown General: Alert, Oriented, Cooperative, No Acute Distress HEENT: Pupils Equal, Pupils Reactive, EOMI, Mucous Membr. Moist/[place] Neck: Supple Lungs: Clear to Auscultation, Normal Respiratory Effort Cardiovascular: Regular Rate, Regular Rhythm GI/Abdominal Exam: Normal Bowel Sounds, Soft, Non-Tender, No Distention (Female) Exam: Deferred Back Exam: Other (sore over sacral area/buttocks with pressure). No: CVA Tenderness (L), CVA Tenderness (R), Muscle Spasm Extremities: Pedal Edema (pitting). No: Lida's Sign, Increased Warmth, Mottled , Pallor, Redness Peripheral Pulses: 1+: Radial (L), Radial (R) Skin: Warm, Dry, Intact Neurological: No New Focal Deficit Psy/Mental Status: Alert, Normal Affect, Normal Mood, Other (fatigued in appearance) - Problem List & Annotations (1) CLL (chronic lymphocytic leukemia) SNOMED Code(s): 64369533 Code(s): C91.90 - LYMPHOID LEUKEMIA, UNSPECIFIED NOT HAVING ACHIEVED REMISSION Status: Chronic Priority: High Current Visit: Yes Annotation/ Comment:: Patient declines further care for CLL (2) Failure to thrive SNOMED Code(s): 50898087 Code(s): UXL7152 - Status: Chronic Priority: High Current Visit: Yes Qualifiers: Failure to thrive age range: in adult Qualified Code(s): R62.7 - Adult failure to thrive Annotation/Comment:: Weight loss, decreased PO intake, weakness. Comfort care. (3) CHF, Congestive heart failure SNOMED Code(s): 85655544 Code(s): I50.9 - HEART FAILURE, UNSPECIFIED Status: Chronic Priority: Low Current Visit: Yes Onset Date: 06/11/14 Annotation/Comment:: Hx CHF. Diuretic noted to increase patient's BUN/Cr. BNP elevated. Will continue cautious diuretic administration however will be unable to increase dose given kidney issues. Review of [facility] chart from her recent admission showed quick elevation in Bun/Cr whenever diuretics increased. (4) Hyperkalemia SNOMED Code(s): 77684528 Code(s): E87.5 - HYPERKALEMIA Status: Acute Priority: High Current Visit: Yes Annotation/Comment:: Suspect secondary to patient's CKD/lasix and poor PO intake. Patient declines Kayexalate. Single liter of NS given since admission. Potassium slightly improved. (5) Hypoxemia SNOMED Code(s): 161139391 Code(s): R09.02 - HYPOXEMIA Status: Acute Priority: High Current Visit : Yes Annotation/Comment:: Suspect secondary to patient's CHF and CLL. Improved with O2 supplementation. Will need to be discharged home with supplemental O2 (6) Thrombocytopenia SNOMED Code(s): 813473384 Code(s): D69.6 - THROMBOCYTOPENIA, UNSPECIFIED Status: Chronic Priority: Low Current Visit: Yes Annotation/Comment:: Observe. Comfort care. (7) HTN, Benign hypertension SNOMED Code(s): 74000629 Code(s): I10 - ESSENTIAL (PRIMARY) HYPERTENSION Status: Chronic Priority : Medium Current Visit: No Annotation/Comment:: currently stable (8) Hypothyroid SNOMED Code(s): 26625271 Code(s): E03.9 - HYPOTHYROIDISM, UNSPECIFIED Status: Chronic Priority: Low Current Visit: Yes Qualifiers: Hypothyroidism type: unspecified Qualified Code(s): E03.9 - Hypothyroidism , unspecified Annotation/Comment:: Most recent labs from last week. Recheck in one month depending on patient's clinical course. (9) Need for comfort care SNOMED Code(s): 798101093, 654493933 Code(s): EQP8390 - Status: Acute Priority: High Current Visit: Yes Annotation/Comment:: Consult Hospice tomorrow (10) Chronic kidney disease SNOMED Code(s): 264326540 Code(s): N18.9 - CHRONIC KIDNEY DISEASE, UNSPECIFIED Status: Chronic Priority: Low Current Visit: Yes Qualifiers: Chronic kidney disease stage: stage 3 (moderate) Qualified Code(s): N18.3 - Chronic kidney disease, stage 3 (moderate) Annotation/Comment:: Comfort measures. Exacerbated with diuretics. (11) Elevated d-dimer SNOMED Code(s): 309422007 Code(s): R79.89 - OTHER SPECIFIED ABNORMAL FINDINGS OF BLOOD CHEMISTRY Status: Acute Priority: Low Current Visit: Yes Annotation/Comment:: Patient refuses further investigation to rule out PE. Does not want to undergo additional testing/transfer to [facility]. - Problem List Review Problem List Initiated/Reviewed/Updated: Yes - My Orders Last 24 Hours: My Active Orders 07/09/18 19:04 CXR [Chest 2V] [CR] Stat 07/09/18 21:27 Up With Assistance [RC] ASDIRECTED Consult to Case Management/Mirror Department Supervisor [CONS] Routine Acetaminophen/HYDROcodone [[place] 325-5 MG] 1 tab PO Q4H PRN Albuterol/Ipratropium [DuoNeb 3.0-0.5 MG/3 ML] 3 ml NEB Q4H PRN Bisacodyl [Dulcolax] 5 mg PO DAILY PRN LORazepam [Ativan] 1 mg IV Q6H PRN Morphine 2 mg IVPUSH Q2H PRN Ondansetron [Zofran ODT] 4 mg PO Q6H PRN Ondansetron [Zofran] 4 mg IVPUSH Q6H PRN Sennosides [Senna] 8.6 mg PO BID PRN VTE Mechanical Contraindications [AST] Per Unit Routine VTE Pharmacological Contraindications [AST] Per Unit Routine Resuscitation Status Routine 07/09/18 21:28 Patient Status [ADT] Routine Oxygen Therapy [RC] 2300 Vital Signs [RC] Q8HR 07/09/18 21:29 Intake and Output [RC] QSHIFT Pulse Oximetry [RC] PRN 07/09/18 21:31 Antiembolic Hose [OM.PC] Per Unit Routine 07/09/18 21:33 Antiembolic Devices [RC] 08,20 RT Aerosol Therapy [RC] ASDIRECTED 07/09/18 21:34 Comfort Measures [OM.PC] Routine 07/10/18 07:30 Levothyroxine 25 mcg PO ACBREAKFAST 07/10/18 08:00 Allopurinol [Zyloprim] 100 mg PO DAILY Furosemide [Lasix] 20 mg PO DAILY Magnesium Oxide 400 mg PO BID Spironolactone [Aldactone] 25 mg PO QAM 07/10/18 08:19 Sodium Chloride 0.9% [Saline Flush] 10 ml FLUSH ASDIRECTED PRN 07/10/18 Breakfast Regular Diet [DIET] - Assessment Assessment:: As above - Plan Plan:: As above. Comfort care measures. Consult pending with Hospice to set patient up at home for Hospice care.
[2018-07-10] MEDS ORDERED: Morphine Oral Concentrate 20 MG/ML 30 ML Bottle PO PRN (15:00)
[2018-07-11] MEDS: Magnesium Oxide 400 MG Tab PO SCH ×2 (08:15→17:46)
[2018-07-11] MEDS: Furosemide 20 MG Tab PO SCH (08:16)
[2018-07-11] MEDS: Allopurinol 100 MG Tab PO SCH (08:16)
[2018-07-11] MEDS: Levothyroxine 25 MCG Tab PO SCH (08:16)
[2018-07-11] MEDS: Spironolactone 25 MG Tab PO SCH (08:17)
[2018-07-11] MEDS ORDERED: Sodium Polystyrene Sulfonate 15 GM/60 ML Susp 60 ML Bot PO ONE (10:00)
--- NOTE | 2018-07-11 10:19 | PCM.PN ---
- General Info Date of Service: 07/11/18 Admission Dx/Problem (Free Text): 1. End-stage CLL 2. Hypoxia 3. Chronic renal insufficiency Functional Status: Reports: Pain Controlled, Tolerating Diet, Ambulating, Urinating. Denies: New Symptoms, Incentive Spirometry Pain Score: 0 - Review of Systems General: Reports: Weakness (Stable chronic), Fatigue (Stable). Denies: Fever, Malaise, Chills, Night Sweats, Appetite (Adequate per patient, borderline per nurse's) HEENT: Reports: Glasses. Denies: Dysphasia, Eye Pain, Sinus Congestion, Visual Changes Pulmonary: Denies: Shortness of Breath, Pleuritic Chest Pain, Cough, Sputum, Hemoptysis, Wheezing Cardiovascular: Reports: Dyspnea on Exertion, Edema (Stable dependent). Denies : Chest Pain, Palpitations, Orthopnea, Lightheadedness Gastrointestinal: Reports: Constipation (No bowel movement for 4 days). Denies : Abdominal Pain, Decreased Appetite, Diarrhea, Difficulty Swallowing, Flatus, Hematochezia, Melena, Nausea, Vomiting Genitourinary: Reports: Incontinence. Denies: Dysuria, Frequency, Burning, Urgency, Hematuria, Retention, Flank Pain Musculoskeletal: Reports: No Symptoms. Denies: Neck Pain, Shoulder Pain, Back Pain, Leg Pain, Joint Swelling Skin: Reports: No Symptoms. Denies: Diaphoresis, Bruising Neurological: Reports: Paresthesia (Stable by history), Difficulty Walking ( Stable), Weakness (Stable). Denies: Confusion Psychiatric: Denies: Confusion, Depression, Anxiety, Agitation, Cravings, Hallucinations, Suicidal Ideation, Homicidal Ideation - Patient Data Vitals - Most Recent: Last Vital Signs Temp 36.3 C 07/11/18 08:00 Pulse 59 L 07/11/18 08:00 Resp 17 07/11/18 08:00 BP 112/57 L 07/11/18 08:00 Pulse Ox 97 07/11/18 08:00 Vital Signs - 24 hr 07/10/18 07/10/18 07/11/18 11:22 16:00 01:04 Temperature [ 36.4 C 36.1 C 37.0 C Temporal] Pulse, 58 L 60 60 Peripheral [ Left Pulse Oximetry] Respiratory 18 24 H 20 Rate Blood Pressure 103/49 L 90/48 L 122/59 L [Right Upper Arm] O2 Sat by Pulse 97 99 97 Oximetry 07/11/18 08:00 Temperature [ 36.3 C Temporal] Pulse, 59 L Peripheral [ Left Pulse Oximetry] Respiratory 17 Rate Blood Pressure 112/57 L [Right Upper Arm] O2 Sat by Pulse 97 Oximetry Weight - Most Recent: 43.227 kg I&O - Last 24 Hours: Intake & Output 07/10/18 07/11/18 07/11/18 22:59 06:59 14:59 Intake Total 180 350 600 Output Total 400 250 100 Balance -220 100 500 Imaging Impressions - Last 24 Hours: None Lab Results Last 24 Hours: Laboratory Results - last 24 hr 07/10/18 07/10/18 Range/Units 10:10 10:10 WBC 156.4 H* (4.0-10.2) K/uL RBC 3.42 L (3.77-5.09) M/uL Hgb 10.1 L (11.7-15.5) g/dL Hct 31.9 L (34.0-46.0) % MCV 93.3 (84.0-98.0) fL MCH 29.5 (28.2-33.3) pg MCHC 31.7 (31.7-36.0) g/dL RDW 28.7 H (11.2-14.1) % Plt Count 20 L* (150-350) K/uL Sodium 138 (136-145) mmol/L Potassium 5.9 H* (3.5-5.1) mmol/L Chloride 105 (98-107) mmol/L Carbon Dioxide 21.7 (21.0-32.0) mmol/L BUN 104 H* (7-18) mg/dL Creatinine 2.00 H (0.51-1.17) mg/dL Est Cr Clr Drug Dosing 14.60 mL/min Estimated GFR (MDRD) 24 mL/min Glucose 97 (74-106) mg/dL Calcium 8.1 L (8.5-10.1) mg/dL Stone Results Last 24 Hours: None Med Orders - Current: Current Medications Hydrocodone Bitart/Acetaminophen ([place] 325-5 Mg) 1 tab PO Q4H PRN PRN Reason: Pain (moderate 4-6) Last Admin: 07/11/18 08:17 Dose: 1 tab Albuterol/Ipratropium (Duoneb 3.0-0.5 Mg/3 Ml) 3 ml NEB Q4H PRN PRN Reason: Dyspnea Allopurinol (Zyloprim) 100 mg PO DAILY ON LICENSE OF [facility] Last Admin: 07/11/18 08:16 Dose: 100 mg Bisacodyl (Dulcolax) 5 mg PO DAILY PRN PRN Reason: Constipation Furosemide (Lasix) 40 mg IVPUSH BID ON LICENSE OF [facility] Levothyroxine Sodium (Levothyroxine) 25 mcg PO ACBREAKFAST ON LICENSE OF [facility] Last Admin: 07/11/18 08:16 Dose: 25 mcg Lorazepam (Ativan) 1 mg IV Q6H PRN PRN Reason: Nausea/Vomiting Magnesium Oxide (Magnesium Oxide) 400 mg PO BID ON LICENSE OF [facility] Last Admin: 07/11/18 08:15 Dose: 400 mg Morphine Sulfate (Morphine 20 Mg/Ml Soln) 2.5 mg PO Q2H PRN PRN Reason: pain, shortness of breath Ondansetron HCl (Zofran Odt) 4 mg PO Q6H PRN PRN Reason: Nausea/Vomiting Ondansetron HCl (Zofran) 4 mg IVPUSH Q6H PRN PRN Reason: Nausea/Vomiting Senna (Senna) 8.6 mg PO BID PRN PRN Reason: Constipation Sodium Chloride (Saline Flush) 10 ml FLUSH ASDIRECTED PRN PRN Reason: Keep Vein Open Last Admin: 07/10/18 11:29 Dose: 10 ml Sodium Polystyrene Sulfonate (Kayexalate) 45 gm PO NOW ONE Stop: 07/11/18 10:01 Spironolactone (Aldactone) 25 mg PO QAM ON LICENSE OF [facility] Last Admin: 07/11/18 08:17 Dose: 25 mg Discontinued Medications Furosemide (Lasix) 20 mg PO DAILY ON LICENSE OF [facility] Last Admin: 07/11/18 08:16 Dose: 20 mg Sodium Chloride (Normal Saline) 1,000 mls @ 100 mls/hr IV .BOLUS ONE Stop: 07/10/18 07:33 Last Admin: 07/09/18 22:33 Dose: 100 mls/hr Morphine Sulfate (Morphine) 2 mg IVPUSH Q2H PRN PRN Reason: Pain (severe 7-10) Last Admin: 07/10/18 11:29 Dose: 2 mg - Exam Quality Assessment: Supplemental Oxygen, DVT Prophylaxis. No: Central Line/PICC , Urine Catheter, Skin Breakdown, Restraints General: Alert, Oriented, Cooperative, No Acute Distress HEENT: Pupils Equal, Pupils Reactive, EOMI, Mucous Membr. Moist/[place]. No: Scleral Icterus Neck: Supple, Trachea Midline, No Thyromegaly, Carotid Bruit (Mild bilateral carotid bruits). No: Lymphadenopathy Lungs: Normal Respiratory Effort, Rales (Mild bilateral basilar). No: Rhonchi, Rub, Wheezing Cardiovascular: Regular Rate, Regular Rhythm, No Murmurs. No: Gallops, Rubs GI/Abdominal Exam: Normal Bowel Sounds, Soft, Non-Tender, No Organomegaly, No Distention, No Abnormal Bruit, No Mass, Pelvis Stable. No: Guarding (Female) Exam: Deferred Back Exam: Normal Inspection, Full Range of Motion. No: CVA Tenderness (L), CVA Tenderness (R), Muscle Spasm Extremities: Pedal Edema (Stable +1+2 pitting bilateral pedal edema). No: Non- Tender (Stable chronic bilateral feet paresthesias and toe discomfort without evidence of inflammation or gout-type symptoms. Moderate onychomycosis in the toenails), Lida's Sign Peripheral Pulses: 1+: Dorsalis Pedis (L), Dorsalis Pedis (R), 2+: Radial (L), Radial (R) Skin: Warm, Dry, Intact. No: Ecchymosis Neurological: No New Focal Deficit Psy/Mental Status: Alert, Normal Affect, Normal Mood. No: Hallucinations, Withdrawal Symptoms - Problem List & Annotations (1) CLL (chronic lymphocytic leukemia) SNOMED Code(s): 49445099 Code(s): C91.90 - LYMPHOID LEUKEMIA, UNSPECIFIED NOT HAVING ACHIEVED REMISSION Status: Chronic Priority: High Current Visit: Yes Annotation/ Comment:: End-stage exacerbation of her CLL with patient refusing further care, oncology consultation, etc. Family is in agreement with this treatment plan with NO CODE STATUS as below. (2) Need for comfort care SNOMED Code(s): 023433484, 754763070 Code(s): HGR0533 - Status: Acute Priority: High Current Visit: Yes Annotation/Comment:: Patient initially wanted to go home on home health and hospice. However this morning after extensive discussion with the patient and multiple family members she has elected to try for either long-term or swing bed care under hospice in this facility. Hospice consultation has been ordered for today. Patient initially refused any treatment measures, however she does agree today to treatment with IV Lasix, Kayexalate, etc. secondary to her significant renal failure and hyperkalemia. The patient and her family are aware of the risk of progression of her CHF and possible cardiac arrhythmia secondary to her hyperkalemia, etc. as above. Additional day of inpatient care is required secondary to above treatment measures. Chest x-ray and blood work has been ordered for the a.m. Emotional and spiritual support was provided to the patient and multiple family members. does need continued (3) CHF, Congestive heart failure SNOMED Code(s): 62885981 Code(s): I50.9 - HEART FAILURE, UNSPECIFIED Status: Chronic Priority: Low Current Visit: Yes Onset Date: 06/11/14 Annotation/Comment:: CHF is clinically stable despite her renal failure with no chest pain or anginal type symptoms.. Note LFTs elevation likely secondary to her CHF. Initiation of medical therapy as above. (4) Renal insufficiency SNOMED Code(s): 207116920, 469052225 Code(s): N28.9 - DISORDER OF KIDNEY AND URETER, UNSPECIFIED Status: Chronic Priority: High Current Visit: Yes Annotation/Comment:: Significant kidney failure as per blood work and admission H&P. Note no treatment of her hyperkalemia to this point during this hospitalization with potassium level likely significantly elevated from time of admission. Note initiation of medical therapy today as above. (5) COPD, Mild chronic obstructive pulmonary disease SNOMED Code(s): 440862967 Code(s): J44.9 - CHRONIC OBSTRUCTIVE PULMONARY DISEASE, UNSPECIFIED Status : Acute Priority: High Current Visit: No Onset Date: 06/11/14 Annotation /Comment:: Stable by history with continuation of nebulizer therapy during this hospitalization. Note hypoxia likely secondary to her CHF with O2 supplementation during this hospitalization. (6) Hyperuricemia SNOMED Code(s): 51717557 Code(s): E79.0 - HYPERURICEMIA W/O SIGNS OF INFLAM ARTHRIT AND TOPHACEOUS DIS Status: Chronic Priority: Medium Current Visit: Yes Annotation/ Comment:: Telemetry under therapy. Uric acid level in the a.m. especially in light of IV Lasix therapy, which the patient agreed to today. Comfort care as above. (7) Confusion SNOMED Code(s): 214298135 Code(s): R41.0 - DISORIENTATION, UNSPECIFIED Status: Chronic Priority: Medium Current Visit: Yes Annotation/Comment:: Borderline organic brain syndrome. Stable by history and exam. (8) Elevated d-dimer SNOMED Code(s): 937560280 Code(s): R79.89 - OTHER SPECIFIED ABNORMAL FINDINGS OF BLOOD CHEMISTRY Status: Acute Priority: High Current Visit: Yes Onset Date: ~07/09/18 Annotation/Comment:: Patient refuses further investigation to rule out PE and/ or DVT with no clinical evidence of a VT or PE. Note comfort care with no further treatment per her request. (9) Hypothyroidism determined by thyroid function test SNOMED Code(s): 14841223 Code(s): E03.9 - HYPOTHYROIDISM, UNSPECIFIED; R94.6 - ABNORMAL RESULTS OF THYROID FUNCTION STUDIES Status: Chronic Priority: Medium Current Visit: Yes Annotation/Comment:: TSH in the a.m. (10) HTN, Benign hypertension SNOMED Code(s): 86745920 Code(s): I10 - ESSENTIAL (PRIMARY) HYPERTENSION Status: Chronic Priority : Medium Current Visit: Yes Annotation/Comment:: Stable during this hospitalization (11) Anemia SNOMED Code(s): 356693236 Code(s): D64.9 - ANEMIA, UNSPECIFIED Status: Chronic Priority: Medium Current Visit: Yes Qualifiers: Anemia type: unspecified type Qualified Code(s): D64.9 - Anemia, unspecified Annotation/Comment:: Likely secondary to her CLL and renal insufficiency. Iron studies, vitamin B-12 level, etc. in the a.m. - Problem List Review Problem List Initiated/Reviewed/Updated: Yes - My Orders Last 24 Hours: My Active Orders 07/11/18 09:59 Consult to Hospice [CONS] Routine 07/11/18 10:00 Sodium Polystyrene Sulfonate [Kayexalate] 45 gm PO NOW ONE 07/11/18 10:15 Furosemide [Lasix] 40 mg IVPUSH BID 07/12/18 05:11 Chest 1V Frontal [CR] Routine CBC WITH AUTO DIFF [HEME] Routine CK W CKMB [CHEM] Routine COMPREHENSIVE METABOLIC PN,CMP [CHEM] Routine PRO B-TYPE NATRIUR PEPT,BNPPRO [CHEM] Routine TROPONIN I [CHEM] Routine TSH ULTRASENSITIVE [CHEM] Routine - Assessment Assessment:: As above - Plan Plan:: As above. Extensive precautions were given to the patient, who is in agreement with the treatment plan. Probable transferred to swing bed versus long-term tomorrow under hospice care as above.
[2018-07-11] MEDS: Sodium Chloride 0.9% 10 ML Syringe FLUSH PRN ×2 (10:42→17:47)
[2018-07-11] MEDS: Furosemide 40 MG/4 ML VIAL IVPUSH SCH ×2 (10:42→17:47)
[2018-07-12] MEDS: Magnesium Oxide 400 MG Tab PO SCH ×2 (08:13→17:56)
[2018-07-12] MEDS: Levothyroxine 25 MCG Tab PO SCH (08:13)
[2018-07-12] MEDS: Allopurinol 100 MG Tab PO SCH (08:13)
[2018-07-12] MEDS: Furosemide 40 MG/4 ML VIAL IVPUSH SCH ×2 (08:14→17:55)
[2018-07-12] MEDS: Sodium Chloride 0.9% 10 ML Syringe FLUSH PRN ×3 (08:14→23:01)
--- NOTE | 2018-07-12 08:53 | PCM.PN ---
- General Info Date of Service: 07/12/18 Admission Dx/Problem (Free Text): 1. End-stage CLL 2. Hypoxia 3. Chronic renal insufficiency Functional Status: Reports: Pain Controlled, Tolerating Diet, Ambulating, Urinating (Urine output improved with IV Lasix therapy), Incentive Spirometry. Denies: New Symptoms Pain Score: 0 - Review of Systems General: Reports: Weakness (Stable chronic), Fatigue (Stable chronic), Appetite (Adequate per patient). Denies: Fever, Malaise, Chills, Night Sweats HEENT: Reports: Glasses. Denies: Dysphasia, Ear Pain, Eye Pain, Headaches, Post Nasal Drip, Sinus Congestion, Sore Throat, Rhinitis, Visual Changes Pulmonary: Reports: Shortness of Breath. Denies: Pleuritic Chest Pain, Cough, Sputum, Hemoptysis, Wheezing Cardiovascular: Reports: Dyspnea on Exertion, Edema (Stable dependent). Denies : Chest Pain, Palpitations, Orthopnea, PND, Lightheadedness Gastrointestinal: Reports: No Symptoms, Abdominal Pain. Denies: Constipation ( Resolved with Kayexalate therapy with excellent bowel movement earlier this morning), Decreased Appetite, Diarrhea, Difficulty Swallowing, Flatus, Hematochezia, Melena, Nausea, Vomiting Genitourinary: Reports: No Symptoms. Denies: Dysuria, Frequency, Burning, Pain , Urgency, Incontinence, Hematuria, Retention, Flank Pain Musculoskeletal: Reports: Foot Pain (Stable bilateral). Denies: Neck Pain, Shoulder Pain, Arm Pain, Back Pain, Joint Pain, Joint Swelling Skin: Reports: Pallor, Bruising. Denies: Diaphoresis, Rash Neurological: Reports: Numbness (Stable), Paresthesia (Stable in feet bilaterally), Tingling (As above), Difficulty Walking (Secondary to generalized weakness), Weakness (Stable chronic). Denies: Confusion, Dizziness, Headache, Seizure, Syncope, Tremors, Trouble Speaking, Change in Speech Psychiatric: Reports: No Symptoms. Denies: Confusion, Depression, Anxiety, Agitation, Cravings, Hallucinations - Patient Data Vitals - Most Recent: Last Vital Signs Temp 37.1 C 07/11/18 23:38 Pulse 71 07/11/18 23:38 Resp 20 07/11/18 23:38 BP 122/55 L 07/11/18 23:38 Pulse Ox 91 L 07/11/18 23:38 Vital Signs - 24 hr 07/11/18 07/11/18 07/11/18 16:00 21:48 23:38 Temperature [ 36.6 C 36.8 C 37.1 C Temporal] Pulse, 61 72 71 Peripheral [ Left Pulse Oximetry] Respiratory 16 14 20 Rate Blood Pressure 107/47 L 109/53 L 122/55 L [Left Upper Arm ] O2 Sat by Pulse 81 L 91 L 91 L Oximetry Weight - Most Recent: 43.227 kg (Stable) I&O - Last 24 Hours: Intake & Output 07/11/18 07/12/18 07/12/18 22:59 06:59 14:59 Intake Total 200 400 Output Total 1100 1000 Balance -900 -600 Imaging Impressions - Last 24 Hours: Chest x-ray, portable, shows evidence of mild aortic valve calcification and prominence of the aortic arch with no significant cardiomegaly, pulmonary infiltrates, pneumothorax, etc. Moderate osteoarthritic changes with additional mild scoliosis. Mild COPD changes with probable pulmonary hypertension and/or mild centralized CHF including occasional Kelvin B lines. Lab Results Last 24 Hours: Laboratory Results - last 24 hr 07/12/18 07/12/18 Range/Units 07:40 07:40 WBC 128.2 H* (4.0-10.2) K/uL RBC 3.19 L (3.77-5.09) M/uL Hgb 9.2 L (11.7-15.5) g/dL Hct 30.3 L (34.0-46.0) % MCV 95.0 (84.0-98.0) fL MCH 28.8 (28.2-33.3) pg MCHC 30.4 L (31.7-36.0) g/dL RDW 28.9 H (11.2-14.1) % Plt Count 7 L* (150-350) K/uL Add Manual Diff Yes Iron 44 L (50-175) ug/dL TIBC 121 L (250-450) ug/dL % Saturation 36.00956 Ferritin 480 H (8-388) ng/mL Laboratory Results - last 24 hr 07/12/18 07/12/18 07/12/18 Range/Units 07:40 07:40 07:40 WBC 128.2 H* (4.0-10.2) K/uL RBC 3.19 L (3.77-5.09) M/uL Hgb 9.2 L (11.7-15.5) g/dL Hct 30.3 L (34.0-46.0) % MCV 95.0 (84.0-98.0) fL MCH 28.8 (28.2-33.3) pg MCHC 30.4 L (31.7-36.0) g/dL RDW 28.9 H (11.2-14.1) % Plt Count 7 L* (150-350) K/uL Add Manual Diff Yes Neutrophils % (Manual) 29 Band Neutrophils % 33 Lymphocytes % (Manual) 20 Monocytes % (Manual) 18 Absolute Neutrophils 79.4840 Lymphocytes # (Manual) 25.6400 Monocytes # (Manual) 23.0760 Nucleated RBCs 40 Sodium 136 (136-145) mmol/L Potassium 4.7 (3.5-5.1) mmol/L Chloride 103 (98-107) mmol/L Carbon Dioxide 23.1 (21.0-32.0) mmol/L BUN 95 H* (7-18) mg/dL Creatinine 1.72 H (0.51-1.17) mg/dL Est Cr Clr Drug Dosing 17.21 mL/min Estimated GFR (MDRD) 28 mL/min Glucose 95 (74-106) mg/dL Calcium 7.9 L (8.5-10.1) mg/dL Iron 44 L (50-175) ug/dL TIBC 121 L (250-450) ug/dL % Saturation 36.72845 Ferritin 480 H (8-388) ng/mL Total Bilirubin 0.6 (0.2-1.0) mg/dL AST 55 H (15-37) U/L ALT 28 (12-78) U/L Alkaline Phosphatase 222 H (46-116) IU/L Creatine Kinase 15 L (26-308) U/L Creatine Kinase Index 6.0 H (0.0-2.5) % CK-MB (CK-2) 0.90 (0.00-3.60) ng/mL Troponin I 0.002 (0.000-0.056) ng/mL NT-Pro-B Natriuret Pep 5170 H (0-125) pg/mL Total Protein 5.7 L (6.4-8.2) g/dL Albumin 2.2 L (3.4-5.0) g/dL Vitamin B12 53 L (193-986) pg/mL TSH, Ultra Sensitive 27.181 H (0.358-3.740) mIU/mL Med Orders - Current: Current Medications Hydrocodone Bitart/Acetaminophen ([place] 325-5 Mg) 1 tab PO Q4H PRN PRN Reason: Pain (moderate 4-6) Last Admin: 07/11/18 08:17 Dose: 1 tab Albuterol/Ipratropium (Duoneb 3.0-0.5 Mg/3 Ml) 3 ml NEB Q4H PRN PRN Reason: Dyspnea Allopurinol (Zyloprim) 100 mg PO DAILY [facility] Last Admin: 07/12/18 08:13 Dose: 100 mg Bisacodyl (Dulcolax) 5 mg PO DAILY PRN PRN Reason: Constipation Furosemide (Lasix) 40 mg IVPUSH BID [facility] Last Admin: 07/12/18 08:14 Dose: 40 mg Levothyroxine Sodium (Levothyroxine) 25 mcg PO ACBREAKFAST [facility] Last Admin: 07/12/18 08:13 Dose: 25 mcg Lorazepam (Ativan) 1 mg IV Q6H PRN PRN Reason: Nausea/Vomiting Magnesium Oxide (Magnesium Oxide) 400 mg PO BID [facility] Last Admin: 07/12/18 08:13 Dose: 400 mg Morphine Sulfate (Morphine 20 Mg/Ml Soln) 2.5 mg PO Q2H PRN PRN Reason: pain, shortness of breath Ondansetron HCl (Zofran Odt) 4 mg PO Q6H PRN PRN Reason: Nausea/Vomiting Ondansetron HCl (Zofran) 4 mg IVPUSH Q6H PRN PRN Reason: Nausea/Vomiting Senna (Senna) 8.6 mg PO BID PRN PRN Reason: Constipation Sodium Chloride (Saline Flush) 10 ml FLUSH ASDIRECTED PRN PRN Reason: Keep Vein Open Last Admin: 07/12/18 08:14 Dose: 10 ml Discontinued Medications Furosemide (Lasix) 20 mg PO DAILY [facility] Last Admin: 07/11/18 08:16 Dose: 20 mg Sodium Chloride (Normal Saline) 1,000 mls @ 100 mls/hr IV .BOLUS ONE Stop: 07/10/18 07:33 Last Admin: 07/09/18 22:33 Dose: 100 mls/hr Morphine Sulfate (Morphine) 2 mg IVPUSH Q2H PRN PRN Reason: Pain (severe 7-10) Last Admin: 07/10/18 11:29 Dose: 2 mg Sodium Polystyrene Sulfonate (Kayexalate) 45 gm PO NOW ONE Stop: 07/11/18 10:01 Last Admin: 07/11/18 10:43 Dose: 45 gm Spironolactone (Aldactone) [address] [facility] Last Admin: 07/11/18 08:17 Dose: 25 mg - Exam Quality Assessment: Supplemental Oxygen, DVT Prophylaxis. No: Central Line/PICC , Urine Catheter, Skin Breakdown, Restraints General: Alert, Oriented, Cooperative, No Acute Distress HEENT: Pupils Equal, Pupils Reactive, EOMI, Mucous Membr. Moist/[place], Other ( Patient wearing glasses). No: Scleral Icterus Neck: Supple, Trachea Midline, No JVD, No Thyromegaly. No: Lymphadenopathy Lungs: Rales (Mild bilateral basilar rales). No: Normal Respiratory Effort ( Mild dyspnea and accessory muscle use at rest), Rhonchi, Rub, Wheezing GI/Abdominal Exam: Normal Bowel Sounds, Soft, Non-Tender, No Organomegaly, No Distention, No Abnormal Bruit, No Mass. No: Guarding (Female) Exam: Deferred Back Exam: Full Range of Motion, Other (Mild scoliosis). No: CVA Tenderness (L) , CVA Tenderness (R), Muscle Spasm, Paraspinal Tenderness, Vertebral Tenderness Extremities: Normal Range of Motion, Non-Tender, Normal Capillary Refill, Pedal Edema (Stable +1 to +2 bilateral pedal edema and distal pretibial edema), Leg Pain (As above), Pallor (Mild). No: Joint Swelling, Lida's Sign Peripheral Pulses: 0: Dorsalis Pedis (L), Dorsalis Pedis (R), 2+: Radial (L), Radial (R) Skin: Ecchymosis (Mild diffuse with occasional petechiae). No: Rash Neurological: No New Focal Deficit, Other (Stable generalized weakness) Psy/Mental Status: Alert, Normal Affect, Normal Mood. No: Agitated, Hallucinations, Withdrawal Symptoms - Problem List & Annotations (1) CLL (chronic lymphocytic leukemia) SNOMED Code(s): 59028948 Code(s): C91.90 - LYMPHOID LEUKEMIA, UNSPECIFIED NOT HAVING ACHIEVED REMISSION Status: Chronic Priority: High Current Visit: Yes Annotation/ Comment:: End-stage exacerbation of her CLL with patient refusing further care, oncology consultation, etc. Family is in agreement with this treatment plan with NO CODE STATUS as below. Note significant WBC elevation, although improved from admission. Progressive anemia with hemoglobin of 9.2 this morning in comparison to 11.1 on admission. Platelets also significantly decreased at 7 with previous 1020 values during this hospitalization. Note progressive ecchymosis and petechiae, however no direct evidence of acute GI bleed. Initiate oral Prilosec and high-dose Tums as GI prophylaxis secondary to her hypocalcemia. Prognosis extremely poor. Secondary to winter blizzard today and pharmacies being closed planned transfer to [facility] under hospice care will be delayed until tomorrow. She would also benefit from continued IV Lasix therapy with continuation of acute care for now. [facility] physician assumes care in the a.m. Prognosis extremely poor. Emotional support once again provided. (2) Need for comfort care SNOMED Code(s): 682952571, 140942514 Code(s): OJP5499 - Status: Acute Priority: High Current Visit: Yes Annotation/Comment:: Patient initially wanted to go home on home health and hospice. However, on 07/11 I did have an extensive discussion with the patient and multiple family members. The patient and her family have elected to transfer the patient to [facility] as above since swing bed care is not financially reasonable under hospice in this facility. Hospice consultation has been conducted. Patient initially refused any treatment measures, however she did agree on 07/11 to treatment with IV Lasix, Kayexalate, etc. secondary to her significant renal failure and hyperkalemia. The patient and her family are aware of the risk of progression of her CHF and possible cardiac arrhythmia secondary to her hyperkalemia, etc. as above. Additional inpatient care is required secondary treatment measures as above, winter weather, as above. Chest x-ray and blood work results from 07/12 were discussed with the patient. Emotional and spiritual support was provided to the patient and multiple family members on 07/11. (3) CHF, Congestive heart failure SNOMED Code(s): 96340192 Code(s): I50.9 - HEART FAILURE, UNSPECIFIED Status: Chronic Priority: Low Current Visit: Yes Onset Date: 06/11/14 Annotation/Comment:: CHF is clinically stable despite her renal failure with no chest pain or anginal type symptoms.. Note LFTs elevation likely secondary to her CHF with slowly improving LFTs elevation in BNP with IV Lasix therapy. Initiation of medical therapy on 07/11 as above. Note artifactually elevated CK index secondary to low baseline CK with otherwise normal cardiac enzymes. (4) Renal insufficiency SNOMED Code(s): 241003002, 541854571 Code(s): N28.9 - DISORDER OF KIDNEY AND URETER, UNSPECIFIED Status: Chronic Priority: High Current Visit: Yes Annotation/Comment:: Significant kidney failure as per blood work and admission H&P. Note no treatment of her hyperkalemia during early phases of hospitalization per the patient's and her family's request. Note initiation of medical therapy on 07/11 as above with improved BUN and creatinine despite her IV Lasix. Potassium level is normal today. Continue to observe closely on an outpatient basis. (5) COPD, Mild chronic obstructive pulmonary disease SNOMED Code(s): 744203181 Code(s): J44.9 - CHRONIC OBSTRUCTIVE PULMONARY DISEASE, UNSPECIFIED Status : Acute Priority: High Current Visit: No Onset Date: 06/11/14 Annotation /Comment:: Stable by history with continuation of nebulizer therapy during this hospitalization. Note hypoxia likely secondary to her CHF with O2 supplementation during this hospitalization. (6) Hyperuricemia SNOMED Code(s): 90515444 Code(s): E79.0 - HYPERURICEMIA W/O SIGNS OF INFLAM ARTHRIT AND TOPHACEOUS DIS Status: Chronic Priority: Medium Current Visit: Yes Annotation/ Comment:: Currently under therapy. Consider uric acid level on an outpatient basis depending on her future Lasix therapy, etc. Comfort care as above. (7) Confusion SNOMED Code(s): 091334917 Code(s): R41.0 - DISORIENTATION, UNSPECIFIED Status: Chronic Priority: Medium Current Visit: Yes Annotation/Comment:: Borderline organic brain syndrome. Stable by history and exam during this hospitalization. (8) Elevated d-dimer SNOMED Code(s): 004453515 Code(s): R79.89 - OTHER SPECIFIED ABNORMAL FINDINGS OF BLOOD CHEMISTRY Status: Acute Priority: High Current Visit: Yes Onset Date: ~07/09/18 Annotation/Comment:: Patient refuses further investigation to rule out PE and/ or DVT with no clinical evidence of a DVT or PE. Note comfort care with no further treatment per her request. No Vitamin K therapy for this time for her thrombocytopenia secondary to this d-dimer elevation. Prognosis once again is extremely poor. (9) Hypothyroidism determined by thyroid function test SNOMED Code(s): 01466413 Code(s): E03.9 - HYPOTHYROIDISM, UNSPECIFIED; R94.6 - ABNORMAL RESULTS OF THYROID FUNCTION STUDIES Status: Chronic Priority: Medium Current Visit: Yes Annotation/Comment:: TSH elevated on 07/12 with increase of her current Synthroid therapy ordered. Recommend repeat TSH in 4 weeks. (10) HTN, Benign hypertension SNOMED Code(s): 06992154 Code(s): I10 - ESSENTIAL (PRIMARY) HYPERTENSION Status: Chronic Priority : Medium Current Visit: Yes Annotation/Comment:: Stable during this hospitalization although occasionally low, however relatively nonsymptomatic. (11) Anemia SNOMED Code(s): 078827010 Code(s): D64.9 - ANEMIA, UNSPECIFIED Status: Chronic Priority: Medium Current Visit: Yes Qualifiers: Anemia type: unspecified type Qualified Code(s): D64.9 - Anemia, unspecified Annotation/Comment:: Progressive anemia likely secondary to her CLL and renal insufficiency. Iron studies, vitamin B-12 level, conducted on 07/12 with no further iron supplementation at this time secondary to comfort care and elevated ferritin. However, note that her vitamin B-12 level is significantly decreased with initiation of this therapy on 07/12. (12) Thrombocytopenia SNOMED Code(s): 185527373 Code(s): D69.6 - THROMBOCYTOPENIA, UNSPECIFIED Status: Chronic Priority: High Current Visit: Yes Annotation/Comment:: As above. Continue Comfort care. (13) Vitamin B 12 deficiency SNOMED Code(s): 747176354 Code(s): E53.8 - DEFICIENCY OF OTHER SPECIFIED B GROUP VITAMINS Status: Acute Priority: Medium Current Visit: Yes Onset Date: 07/12/18 Annotation/Comment:: As above (14) Hypoalbuminemia SNOMED Code(s): 984233344 Code(s): E88.09 - OTH DISORDERS OF PLASMA-PROTEIN METABOLISM, NEC Status: Acute Priority: Medium Current Visit: Yes Onset Date: 07/12/18 Annotation/Comment:: Initiate high-protein Glucerna supplements twice a day as snacks. (15) Hypocalcemia SNOMED Code(s): 9377827 Code(s): E83.51 - HYPOCALCEMIA Status: Acute Priority: Medium Current Visit: Yes Onset Date: 07/12/18 Annotation/Comment:: As above - Problem List Review Problem List Initiated/Reviewed/Updated: Yes - My Orders Last 24 Hours: My Active Orders 07/11/18 09:59 Consult to Hospice [CONS] Routine 07/11/18 10:15 Furosemide [Lasix] 40 mg IVPUSH BID 07/11/18 13:32 OT Evaluation and Treatment [CONS] Routine 07/11/18 13:33 PT Evaluation and Treatment [CONS] Routine 07/12/18 05:11 Chest 1V Frontal [CR] Routine 07/12/18 07:40 CBC WITH AUTO DIFF [HEME] Routine CK W CKMB [CHEM] Routine COMPREHENSIVE METABOLIC PN,CMP [CHEM] Routine MANUAL DIFFERENTIAL QA/NC [HEME] Routine PRO B-TYPE NATRIUR PEPT,BNPPRO [CHEM] Routine TROPONIN I [CHEM] Routine TSH ULTRASENSITIVE [CHEM] Routine VITAMIN B12 [CHEM] Routine - Assessment Assessment:: As above - Plan Plan:: As above. Extensive precautions were given to the patient, who is in agreement with the treatment plan. Probable transfer to [facility] tomorrow under hospice care as above.
[2018-07-12] MEDS ORDERED: Albuterol 0.083% 2.5 MG/3 ML Neb Soln INH PRN (10:00)
[2018-07-12] MEDS: Cyanocobalamin (Vitamin B12) 1,000 MCG Tab PO SCH (10:21)
[2018-07-12] MEDS: Omeprazole 20 MG Cap.CR PO SCH (10:21)
[2018-07-12] MEDS ORDERED: Aloe Vera/Sodium Chloride Gel 14.1 GM Tube NASBOTH PRN (10:28)
[2018-07-12] MEDS: Albuterol/Ipratropium 3.0-0.5 MG/3 ML Neb Soln NEB SCH ×2 (13:17→19:22)
[2018-07-12] MEDS ORDERED: Levothyroxine 50 MCG Tab PO ONE (13:39)
[2018-07-12] MEDS ORDERED: Calcium Carbonate 750 MG Tab.Chew PO SCH (20:00)
[2018-07-13] MEDS: Albuterol/Ipratropium 3.0-0.5 MG/3 ML Neb Soln NEB SCH ×2 (03:33→08:53)
[2018-07-13] MEDS ORDERED: Levothyroxine 100 MCG Tab PO SCH (07:30)
[2018-07-13] MEDS: Cyanocobalamin (Vitamin B12) 1,000 MCG Tab PO SCH (08:50)
[2018-07-13] MEDS: Allopurinol 100 MG Tab PO SCH (08:50)
[2018-07-13] MEDS: Omeprazole 20 MG Cap.CR PO SCH (08:51)
[2018-07-13] MEDS: Magnesium Oxide 400 MG Tab PO SCH (08:51)
[2018-07-13] MEDS: Sodium Chloride 0.9% 10 ML Syringe FLUSH PRN (08:54)
[2018-07-13] MEDS: Furosemide 40 MG/4 ML VIAL IVPUSH SCH (09:01)
--- NOTE | 2018-07-13 09:30 | PCM.DCSUM1 ---
Discharge Summary - Hospital Course HPI Initial Comments: See emergency room note/admission H&P Brief History: See emergency room note/admission H&P Diagnosis: Stroke: No Modified Hepler Scale: No Symptoms at All Modified Hepler Scale Score: 0 - Discharge Data Discharge Date: 07/13/18 Discharge Disposition: DC/Tfer to Other 70 Condition: Serious - Discharge Diagnosis/Problem(s) (1) CLL (chronic lymphocytic leukemia) SNOMED Code(s): 15405692 ICD Code: C91.90 - LYMPHOID LEUKEMIA, UNSPECIFIED NOT HAVING ACHIEVED REMISSION Status: Chronic Priority: High Problem Details: End-stage exacerbation of her CLL with patient refusing further care, oncology consultation, etc. Family is in agreement with this treatment plan with NO CODE STATUS as below. Note significant WBC elevation, although improved from admission. Progressive anemia with hemoglobin of 9.2 on 07/12 in comparison to 11.1 on admission. Platelets also significantly decreased at 7 with previous 10 20 values during this hospitalization. Note progressive ecchymosis and petechiae , however no direct evidence of acute GI bleed. Initiated oral Prilosec and high -dose Tums as GI prophylaxis secondary to her hypocalcemia on 07/12. Prognosis extremely poor. Secondary to winter blizzard and pharmacies being closed on 07/12 planned transfer to [facility] under hospice care was delayed until today. She also benefited from continued IV Lasix therapy with continuation of acute care IV access lost this morning and patient to be changed to an oral Lasix regimen. Emotional and spiritual support once again provided. Note that some initial IV morphine and IV Ativan therapy was required secondary to nonspecific bilateral foot pain likely secondary to neuropathy, however this will not be needed at discharge at this time. (2) Need for comfort care SNOMED Code(s): 351591261, 874837164 ICD Code: [id number] - Status: Acute Priority: High Problem Details: Patient initially wanted to go home on home health and hospice. However, on 07/11 I did have an extensive discussion with the patient and multiple family members. The patient and her family have elected to transfer the patient to [facility] as above since swing bed care is not financially reasonable under hospice in this facility. Hospice consultation has been conducted. Patient initially refused any treatment measures, however she did agree on 07/11 to treatment with IV Lasix, Kayexalate, etc. secondary to her significant renal failure and hyperkalemia. The patient and her family are aware of the risk of progression of her CHF and possible cardiac arrhythmia secondary to her hyperkalemia, etc. as above. Additional inpatient care is required secondary treatment measures as above, winter weather, as above. Chest x-ray and blood work results from 07/12 were discussed with the patient. Emotional and spiritual support was provided to the patient and multiple family members on 07/11. (3) CHF, Congestive heart failure SNOMED Code(s): 67768360 ICD Code: I50.9 - HEART FAILURE, UNSPECIFIED Status: Chronic Priority: Low Onset Date: 06/11/14 Problem Details: CHF is clinically stable despite her renal failure with no chest pain or anginal type symptoms.. Note LFTs elevation likely secondary to her CHF with slowly improving LFTs elevation in BNP with IV Lasix therapy. Initiation of medical therapy on 07/11 as above. Note artifactually elevated CK index secondary to low baseline CK with otherwise normal cardiac enzymes. (4) Renal insufficiency SNOMED Code(s): 192820351, 652892026 ICD Code: N28.9 - DISORDER OF KIDNEY AND URETER, UNSPECIFIED Status: Chronic Priority: High Problem Details: Significant kidney failure as per blood work and admission H&P. Note no treatment of her hyperkalemia during early phases of hospitalization per the patient's and her family's request. Note initiation of medical therapy on 07/11 as above with improved BUN and creatinine despite her IV Lasix. Potassium level was normal on 07/12. Continue to observe closely on an outpatient basis. (5) COPD, Mild chronic obstructive pulmonary disease SNOMED Code(s): 188802316 ICD Code: J44.9 - CHRONIC OBSTRUCTIVE PULMONARY DISEASE, UNSPECIFIED Status : Acute Priority: High Onset Date: 06/11/14 Problem Details: Stable by history with continuation of nebulizer therapy during this hospitalization, which was changed to a regularly scheduled regimen on 07/12 with overall good response. Note hypoxia likely secondary to her CHF with O2 supplementation during this hospitalization and at discharge. (6) Hyperuricemia SNOMED Code(s): 91121751 ICD Code: E79.0 - HYPERURICEMIA W/O SIGNS OF INFLAM ARTHRIT AND TOPHACEOUS DIS Status: Chronic Priority: Medium Problem Details: Currently under therapy. Uric acid level time of repeat blood work on 07/16. Comfort care as above. (7) Confusion SNOMED Code(s): 851547955 ICD Code: R41.0 - DISORIENTATION, UNSPECIFIED Status: Chronic Priority: Medium Problem Details: Borderline organic brain syndrome. Stable by history and exam during this hospitalization. (8) Elevated d-dimer SNOMED Code(s): 137048261 ICD Code: R79.89 - OTHER SPECIFIED ABNORMAL FINDINGS OF BLOOD CHEMISTRY Status: Acute Priority: High Onset Date: ~07/09/18 Problem Details: Patient refuses further investigation to rule out PE and/or DVT with no clinical evidence of a DVT or PE. Note comfort care with no further treatment per her request. No Vitamin K therapy for this time for her thrombocytopenia secondary to this D-dimer elevation. Prognosis once again is extremely poor. (9) Hypothyroidism determined by thyroid function test SNOMED Code(s): 19430867 ICD Code: E03.9 - HYPOTHYROIDISM, UNSPECIFIED; R94.6 - ABNORMAL RESULTS OF THYROID FUNCTION STUDIES Status: Chronic Priority: Medium Problem Details : TSH elevated on 07/12 with increase of her current Synthroid therapy ordered. Repeat TSH in 4 weeks. (10) HTN, Benign hypertension SNOMED Code(s): 94016618 ICD Code: I10 - ESSENTIAL (PRIMARY) HYPERTENSION Status: Chronic Priority : Medium Problem Details: Stable during this hospitalization although occasionally low, however relatively nonsymptomatic. Systolic blood pressures in the 100s prior to discharge with Toprol-XL and spironolactone discontinued on admission. These medications will not be resumed secondary to patient's current hypotension and previous hyperkalemia. (11) Anemia SNOMED Code(s): 326594723 ICD Code: D64.9 - ANEMIA, UNSPECIFIED Status: Chronic Priority: Medium Problem Details: Progressive anemia likely secondary to her CLL and renal insufficiency. Iron studies, vitamin B-12 level, conducted on 07/12 with no further iron supplementation at this time secondary to comfort care and elevated ferritin. However, note that her vitamin B-12 level is significantly decreased with initiation of this therapy on 07/12. Qualifiers: Anemia type: unspecified type Qualified Code(s): D64.9 - Anemia, unspecified (12) Thrombocytopenia SNOMED Code(s): 135972191 ICD Code: D69.6 - THROMBOCYTOPENIA, UNSPECIFIED Status: Chronic Priority : High Problem Details: As above. Continue Comfort care. (13) Vitamin B 12 deficiency SNOMED Code(s): 730246412 ICD Code: E53.8 - DEFICIENCY OF OTHER SPECIFIED B GROUP VITAMINS Status: Acute Priority: Medium Onset Date: 07/12/18 Problem Details: As above (14) Hypoalbuminemia SNOMED Code(s): 638703158 ICD Code: E88.09 - OTH DISORDERS OF PLASMA-PROTEIN METABOLISM, NEC Status: Acute Priority: Medium Onset Date: 07/12/18 Problem Details: Initiate high -protein Glucerna supplements twice a day as snacks. Note significant cachexia. (15) Hypocalcemia SNOMED Code(s): 8731302 ICD Code: E83.51 - HYPOCALCEMIA Status: Acute Priority: Medium Onset Date: 07/12/18 Problem Details: As above - Patient Summary/Data Operative Procedure(s) Performed: None Complications: None Consults: Consultations 07/09/18 21:27 Consult to Case Management/Chief Technician [CONS] Routine 07/11/18 09:59 Consult to Hospice [CONS] Routine 07/11/18 13:32 OT Evaluation and Treatment [CONS] Routine 07/11/18 13:33 PT Evaluation and Treatment [CONS] Routine Labs Pending at D/C: None Recommended Follow-up Testing/Procedures: As per discharge orders Planned Operative Procedure(s) after DC: None Hospital Course: She was admitted to inpatient/acute care with patient initially refusing treatment. Otherwise treatment measures as above with initiation of hospice consultation, PT, OT, etc. Prognosis is extremely poor as above. - Patient Instructions Diet: Fluid Restriction Fluid Restriction: 2000 mL Feeding Instructions: Glucerna high-protein supplements twice a day as snacks Activity: As Tolerated (As directed by PT/OT. Strict fall precautions) Driving: Do Not Drive Showering/Bathing: May Shower (With assist) Notify Provider of: Fever, Increased Pain, Nausea and/or Vomiting Other/Special Instructions: 1. Admit to the services of Moo Weber M.D. at the [facility]. 2. Continuous oxygen therapy as below. 3. TIBC panel, ferritin level, and TSH are to be repeated in 4 weeks. 4. CBC, basic metabolic panel, uric acid level, and BNP on 07/16/17. 5. Hospice, PT, and OT consultations. 6. NO CODE STATUS - Discharge Plan *PRESCRIPTION DRUG MONITORING PROGRAM REVIEWED*: Not Applicable *COPY OF PRESCRIPTION DRUG MONITORING REPORT IN PATIENT CHRISTINE: Not Applicable Prescriptions/Med Rec: Albuterol [Proventil Neb Soln] 2.5 mg INH Q2H PRN #60 neb PRN Reason: SHORTNESS OF BREATH Albuterol/Ipratropium [DuoNeb 3.0-0.5 MG/3 ML] 3 ml NEB Q4H PRN #1 neb PRN Reason: Dyspnea Albuterol/Ipratropium [DuoNeb 3.0-0.5 MG/3 ML] 3 ml NEB Q6HRRT #60 neb Allopurinol [Zyloprim] 100 mg PO DAILY #30 tablet Aloe Vera/Sodium Chloride [Curtiss Saline Nasal Gel] 1 gm NASBOTH ASDIRECTED PRN #1 tube PRN Reason: Dryness Bisacodyl [Dulcolax] 5 mg PO DAILY PRN #14 tablet PRN Reason: Constipation Calcium Carbonate [Tums Extra Strength] 1,500 mg PO BEDTIME #30 tab.chew Cyanocobalamin (Vitamin B12) [Vitamin B12] 1,000 mcg PO DAILY #30 tablet Furosemide 20 mg PO DAILY #14 tablet Levothyroxine [Synthroid] 100 mcg PO ACBREAKFAST #30 tablet Magnesium Oxide [Magnesium] 1 tab PO BID #60 tablet Omeprazole 20 mg PO DAILY #30 cap.cr Sennosides [Senna] 8.6 mg PO BID PRN #30 tablet PRN Reason: Constipation Home Medications: Home Meds Folic Acid 1 mg PO DAILY 06/11/14 [History] Albuterol [Proventil Neb Soln] 2.5 mg INH Q2H PRN #60 neb 07/13/18 [Rx] Albuterol/Ipratropium [DuoNeb 3.0-0.5 MG/3 ML] 3 ml NEB Q4H PRN #1 neb 07/13/18 [Rx] Albuterol/Ipratropium [DuoNeb 3.0-0.5 MG/3 ML] 3 ml NEB Q6HRRT #60 neb 07/13/18 [Rx] Allopurinol [Zyloprim] 100 mg PO DAILY #30 tablet 07/13/18 [Rx] Aloe Vera/Sodium Chloride [Curtiss Saline Nasal Gel] 1 gm NASBOTH ASDIRECTED PRN #1 tube 07/13/18 [Rx] Bisacodyl [Dulcolax] 5 mg PO DAILY PRN #14 tablet 07/13/18 [Rx] Calcium Carbonate [Tums Extra Strength] 1,500 mg PO BEDTIME #30 tab.chew [Rx] Cyanocobalamin (Vitamin B12) [Vitamin B12] 1,000 mcg PO DAILY #30 tablet [Rx] Furosemide 20 mg PO DAILY #14 tablet 07/13/18 [Rx] Levothyroxine [Synthroid] 100 mcg PO ACBREAKFAST #30 tablet 07/13/18 [Rx] Magnesium Oxide [Magnesium] 1 tab PO BID #60 tablet 07/13/18 [Rx] Omeprazole 20 mg PO DAILY #30 cap.cr 07/13/18 [Rx] Sennosides [Senna] 8.6 mg PO BID PRN #30 tablet 07/13/18 [Rx] Oxygen Therapy Mode: Nasal Cannula Oxygen Flow Rate (L/min): 4 Maintain SPO2% less than: 98 Maintain SpO2% greater than: 89 Forms: ED Department Discharge Referrals: Ciara Mcclelland NP [Nurse Practitioner] - Moo Weber MD [ED Physician] - Robert Faulkner PA [Primary Care Provider] - - Discharge Summary/Plan Comment DC Time >30 min.: Yes (Coordination of care ) Discharge Summary/Plan Comment: As above. Extensive precautions were given to the patient, who is in agreement with the treatment plan. See Patient Instructions for further treatment and plan. - General Info Date of Service: 07/13/18 Admission Dx/Problem (Free Text: 1. End-stage CLL 2. Hypoxia 3. Chronic renal insufficiency Functional Status: Reports: Pain Controlled, Tolerating Diet, Ambulating, Urinating, Incentive Spirometry. Denies: New Symptoms Numeric/FACES Score: 3 - Review of Systems General: Reports: Weakness (Stable chronic), Fatigue (Stable chronic). Denies: Malaise, Chills, Night Sweats, Appetite (Adequate per patient) HEENT: Reports: Glasses. Denies: Contact Lenses, Dysphasia, Ear Pain, Eye Pain , Headaches, Post Nasal Drip, Sinus Congestion, Sore Throat, Visual Changes Pulmonary: Reports: Shortness of Breath (Somewhat improved with nebulizer therapy), Cough (Occasional). Denies: Pleuritic Chest Pain, Sputum, Hemoptysis , Wheezing Cardiovascular: Reports: Dyspnea on Exertion, Edema (Stable dependent). Denies : Chest Pain, Palpitations, Orthopnea, PND, Lightheadedness Gastrointestinal: Reports: No Symptoms. Denies: Abdominal Pain, Constipation, Decreased Appetite, Diarrhea, Difficulty Swallowing, Flatus, Hematochezia, Melena, Nausea, Vomiting Genitourinary: Reports: No Symptoms. Denies: Dysuria, Frequency, Burning, Pain , Urgency, Hematuria, Retention, Flank Pain Musculoskeletal: Reports: No Symptoms. Denies: Neck Pain, Shoulder Pain, Arm Pain, Back Pain, Leg Pain, Joint Pain, Joint Swelling Skin: Reports: Pallor, Bruising, Other (Petechiae). Denies: Diaphoresis Neurological: Reports: Numbness (Chronic bilateral feet), Paresthesia (As above) , Tingling, Difficulty Walking (Secondary to generalized weakness), Weakness ( As above). Denies: Confusion, Dizziness, Headache Psychiatric: Reports: No Symptoms. Denies: Confusion, Depression, Anxiety, Agitation, Hallucinations, Suicidal Ideation, Homicidal Ideation - Patient Data Vitals - Most Recent: Last Vital Signs Temp 36.0 C 07/12/18 23:16 Pulse 71 07/12/18 23:16 Resp 14 07/12/18 23:16 BP 100/48 L 07/12/18 23:16 Pulse Ox 92 L 07/12/18 23:16 Vital Signs - 24 hr 07/12/18 07/12/18 07/13/18 16:00 23:16 08:00 Temperature [ 36.3 C 36.0 C 36.4 C Temporal] Pulse, 75 71 68 Peripheral [ Left Pulse Oximetry] Respiratory 18 14 14 Rate Blood Pressure 107/50 L 100/48 L 102/58 L [Left Upper Arm ] O2 Sat by Pulse 93 L 92 L 99 Oximetry Weight - Most Recent: 43.227 kg (Stable) I&O - Last 24 hours: Intake & Output 07/12/18 07/13/18 07/13/18 22:59 06:59 14:59 Intake Total 1060 300 Output Total 750 650 Balance 310 -350 Imaging Impressions - Last 24 hrs: Chest x-ray, portable, on 07/12/18 shows evidence of mild aortic valve calcification and prominence of the aortic arch with no significant cardiomegaly , pulmonary infiltrates, pneumothorax, etc. Moderate osteoarthritic changes with additional mild scoliosis. Mild COPD changes with probable pulmonary hypertension and/or mild centralized CHF including occasional Kelvin B lines. Lab Results - Last 24 hrs: Laboratory Tests 07/09/18 07/09/18 07/09/18 Range/Units 19:40 19:40 19:42 WBC 166.4 H* (4.0-10.2) K/uL RBC 3.82 (3.77-5.09) M/uL Hgb 11.1 L (11.7-15.5) g/dL Hct 35.4 (34.0-46.0) % MCV 92.7 D (84.0-98.0) fL MCH 29.1 (28.2-33.3) pg MCHC 31.4 L (31.7-36.0) g/dL RDW 29.0 H (11.2-14.1) % Plt Count 10 L* (150-350) K/uL Add Manual Diff Yes Neutrophils % (Manual) 16 Band Neutrophils % 13 Lymphocytes % (Manual) 68 Monocytes % (Manual) 3 Absolute Neutrophils Lymphocytes # (Manual) Monocytes # (Manual) Nucleated RBCs 32 D-Dimer, Quantitative 1150 H (0-400) ng/mL Sodium 137 (136-145) mmol/L Potassium 6.2 H* (3.5-5.1) mmol/L Chloride 103 (98-107) mmol/L Carbon Dioxide 21.1 (21.0-32.0) mmol/L BUN 111 H* (7-18) mg/dL Creatinine 2.09 H (0.51-1.17) mg/dL Est Cr Clr Drug Dosing 13.97 mL/min Estimated GFR (MDRD) 23 mL/min Glucose 124 H (74-106) mg/dL Calcium 8.7 (8.5-10.1) mg/dL Iron (50-175) ug/dL TIBC (250-450) ug/dL % Saturation Ferritin (8-388) ng/mL Total Bilirubin 0.8 (0.2-1.0) mg/dL AST 91 H (15-37) U/L ALT 41 (12-78) U/L Alkaline Phosphatase 250 H (46-116) IU/L Creatine Kinase 84 (26-308) U/L Creatine Kinase Index 1.0 (0.0-2.5) % CK-MB (CK-2) 0.80 (0.00-3.60) ng/mL Troponin I 0.000 (0.000-0.056) ng/mL NT-Pro-B Natriuret Pep 5581 H (0-125) pg/mL Total Protein 6.8 (6.4-8.2) g/dL Albumin 2.5 L (3.4-5.0) g/dL Vitamin B12 (193-986) pg/mL TSH, Ultra Sensitive (0.358-3.740) mIU/mL Specimen Type Urine Color Urine Appearance Urine pH (5.0-9.0) Ur Specific [place]ore (1.005-1.030) Urine Protein (NEGATIVE) mg/dL Urine Glucose (UA) (NEGATIVE) mg/dL Urine Ketones (NEGATIVE) mg/dL Urine Occult Blood (NEGATIVE) Urine Nitrite (NEGATIVE) Urine Bilirubin (NEGATIVE) Urine Urobilinogen (0.2-1.0) E.U./dL Ur Leukocyte Esterase (NEGATIVE) Urine RBC /HPF Urine WBC /HPF Ur Epithelial Cells /LPF Urine Bacteria (NONE TO FEW) /HPF 07/09/18 07/10/18 07/10/18 Range/Units 21:00 10:10 10:10 WBC 156.4 H* (4.0-10.2) K/uL RBC 3.42 L (3.77-5.09) M/uL Hgb 10.1 L (11.7-15.5) g/dL Hct 31.9 L (34.0-46.0) % MCV 93.3 (84.0-98.0) fL MCH 29.5 (28.2-33.3) pg MCHC 31.7 (31.7-36.0) g/dL RDW 28.7 H (11.2-14.1) % Plt Count 20 L* (150-350) K/uL Add Manual Diff Neutrophils % (Manual) Band Neutrophils % Lymphocytes % (Manual) Monocytes % (Manual) Absolute Neutrophils Lymphocytes # (Manual) Monocytes # (Manual) Nucleated RBCs D-Dimer, Quantitative (0-400) ng/mL Sodium 138 (136-145) mmol/L Potassium 5.9 H* (3.5-5.1) mmol/L Chloride 105 (98-107) mmol/L Carbon Dioxide 21.7 (21.0-32.0) mmol/L BUN 104 H* (7-18) mg/dL Creatinine 2.00 H (0.51-1.17) mg/dL Est Cr Clr Drug Dosing 14.60 mL/min Estimated GFR (MDRD) 24 mL/min Glucose 97 (74-106) mg/dL Calcium 8.1 L (8.5-10.1) mg/dL Iron (50-175) ug/dL TIBC (250-450) ug/dL % Saturation Ferritin (8-388) ng/mL Total Bilirubin (0.2-1.0) mg/dL AST (15-37) U/L ALT (12-78) U/L Alkaline Phosphatase (46-116) IU/L Creatine Kinase (26-308) U/L Creatine Kinase Index (0.0-2.5) % CK-MB (CK-2) (0.00-3.60) ng/mL Troponin I (0.000-0.056) ng/mL NT-Pro-B Natriuret Pep (0-125) pg/mL Total Protein (6.4-8.2) g/dL Albumin (3.4-5.0) g/dL Vitamin B12 (193-986) pg/mL TSH, Ultra Sensitive (0.358-3.740) mIU/mL Specimen Type Urinvoid Urine Color Yellow Urine Appearance Clear Urine pH 5.5 (5.0-9.0) Ur Specific [place] 1.010 (1.005-1.030) Urine Protein Trace H (NEGATIVE) mg/dL Urine Glucose (UA) Negative (NEGATIVE) mg/dL Urine Ketones Negative (NEGATIVE) mg/dL Urine Occult Blood Trace-lysed H (NEGATIVE) Urine Nitrite Negative (NEGATIVE) Urine Bilirubin Negative (NEGATIVE) Urine Urobilinogen 0.2 (0.2-1.0) E.U./dL Ur Leukocyte Esterase Negative (NEGATIVE) Urine RBC 0-5 /HPF Urine WBC 0-5 /HPF Ur Epithelial Cells Rare /LPF Urine Bacteria Few (NONE TO FEW) /HPF 07/12/18 07/12/18 07/12/18 Range/Units 07:40 07:40 07:40 WBC 128.2 H* (4.0-10.2) K/uL RBC 3.19 L (3.77-5.09) M/uL Hgb 9.2 L (11.7-15.5) g/dL Hct 30.3 L (34.0-46.0) % MCV 95.0 (84.0-98.0) fL MCH 28.8 (28.2-33.3) pg MCHC 30.4 L (31.7-36.0) g/dL RDW 28.9 H (11.2-14.1) % Plt Count 7 L* (150-350) K/uL Add Manual Diff Yes Neutrophils % (Manual) 29 Band Neutrophils % 33 Lymphocytes % (Manual) 20 Monocytes % (Manual) 18 Absolute Neutrophils 79.4840 Lymphocytes # (Manual) 25.6400 Monocytes # (Manual) 23.0760 Nucleated RBCs 40 D-Dimer, Quantitative (0-400) ng/mL Sodium 136 (136-145) mmol/L Potassium 4.7 (3.5-5.1) mmol/L Chloride 103 (98-107) mmol/L Carbon Dioxide 23.1 (21.0-32.0) mmol/L BUN 95 H* (7-18) mg/dL Creatinine 1.72 H (0.51-1.17) mg/dL Est Cr Clr Drug Dosing 17.21 mL/min Estimated GFR (MDRD) 28 mL/min Glucose 95 (74-106) mg/dL Calcium 7.9 L (8.5-10.1) mg/dL Iron 44 L (50-175) ug/dL TIBC 121 L (250-450) ug/dL % Saturation 36.74893 Ferritin 480 H (8-388) ng/mL Total Bilirubin 0.6 (0.2-1.0) mg/dL AST 55 H (15-37) U/L ALT 28 (12-78) U/L Alkaline Phosphatase 222 H (46-116) IU/L Creatine Kinase 15 L (26-308) U/L Creatine Kinase Index 6.0 H (0.0-2.5) % CK-MB (CK-2) 0.90 (0.00-3.60) ng/mL Troponin I 0.002 (0.000-0.056) ng/mL NT-Pro-B Natriuret Pep 5170 H (0-125) pg/mL Total Protein 5.7 L (6.4-8.2) g/dL Albumin 2.2 L (3.4-5.0) g/dL Vitamin B12 53 L (193-986) pg/mL TSH, Ultra Sensitive 27.181 H (0.358-3.740) mIU/mL Specimen Type Urine Color Urine Appearance Urine pH (5.0-9.0) Ur Specific Lenore (1.005-1.030) Urine Protein (NEGATIVE) mg/dL Urine Glucose (UA) (NEGATIVE) mg/dL Urine Ketones (NEGATIVE) mg/dL Urine Occult Blood (NEGATIVE) Urine Nitrite (NEGATIVE) Urine Bilirubin (NEGATIVE) Urine Urobilinogen (0.2-1.0) E.U./dL Ur Leukocyte Esterase (NEGATIVE) Urine RBC /HPF Urine WBC /HPF Ur Epithelial Cells /LPF Urine Bacteria (NONE TO FEW) /HPF [facility] Results - Last 24 hrs: None Med Orders - Current: Current Medications Hydrocodone Bitart/Acetaminophen ([place] 325-5 Mg) 1 tab PO Q4H PRN PRN Reason: Pain (moderate 4-6) Last Admin: 07/11/18 08:17 Dose: 1 tab Albuterol (Proventil Neb Soln) 2.5 mg INH Q2H PRN PRN Reason: SHORTNESS OF BREATH Albuterol/Ipratropium (Duoneb 3.0-0.5 Mg/3 Ml) 3 ml NEB Q4H PRN PRN Reason: Dyspnea Albuterol/Ipratropium (Duoneb 3.0-0.5 Mg/3 Ml) 3 ml NEB Q6HRRT [facility] Last Admin: 07/13/18 08:53 Dose: 3 ml Allopurinol (Zyloprim) 100 mg PO DAILY [facility] Last Admin: 07/13/18 08:50 Dose: 100 mg Bisacodyl (Dulcolax) 5 mg PO DAILY PRN PRN Reason: Constipation Calcium Carbonate/Glycine (Tums Extra Strength) 1,500 mg PO BEDTIME [facility] Last Admin: 07/12/18 19:22 Dose: 1,500 mg Cyanocobalamin (Vitamin B12) 1,000 mcg PO DAILY [facility] Last Admin: 07/13/18 08:50 Dose: 1,000 mcg Furosemide (Lasix) 40 mg IVPUSH BID [facility] Last Admin: 07/13/18 09:01 Dose: Not Given Levothyroxine Sodium (Synthroid) 100 mcg PO ACBREAKFAST [facility] Last Admin: 07/13/18 08:51 Dose: 100 mcg Lorazepam (Ativan) 1 mg IV Q6H PRN PRN Reason: Nausea/Vomiting Last Admin: 07/12/18 22:55 Dose: 1 mg Magnesium Oxide (Magnesium Oxide) 400 mg PO BID [facility] Last Admin: 07/13/18 08:51 Dose: 400 mg Morphine Sulfate (Morphine 20 Mg/Ml Soln) 2.5 mg PO Q2H PRN PRN Reason: pain, shortness of breath Omeprazole (Omeprazole) 20 mg PO DAILY [facility] Last Admin: 07/13/18 08:51 Dose: 20 mg Ondansetron HCl (Zofran Odt) 4 mg PO Q6H PRN PRN Reason: Nausea/Vomiting Ondansetron HCl (Zofran) 4 mg IVPUSH Q6H PRN PRN Reason: Nausea/Vomiting Senna (Senna) 8.6 mg PO BID PRN PRN Reason: Constipation Sodium Chloride (Saline Flush) 10 ml FLUSH ASDIRECTED PRN PRN Reason: Keep Vein Open Last Admin: 07/13/18 08:54 Dose: 10 ml Sodium Chloride (Curtiss Saline Nasal Gel) 1 gm NASBOTH ASDIRECTED PRN PRN Reason: Dryness Last Admin: 07/12/18 13:29 Dose: 1 applic Discontinued Medications Furosemide (Lasix) 20 mg PO DAILY [facility] Last Admin: 07/11/18 08:16 Dose: 20 mg Sodium Chloride (Normal Saline) 1,000 mls @ 100 mls/hr IV .BOLUS ONE Stop: 07/10/18 07:33 Last Admin: 07/09/18 22:33 Dose: 100 mls/hr Levothyroxine Sodium (Levothyroxine) 25 mcg PO ACBREAKFAST [facility] Last Admin: 07/12/18 08:13 Dose: 25 mcg Levothyroxine Sodium (Synthroid) 50 mcg PO ONETIME ONE Stop: 07/12/18 13:40 Last Admin: 07/12/18 15:03 Dose: 50 mcg Morphine Sulfate (Morphine) 2 mg IVPUSH Q2H PRN PRN Reason: Pain (severe 7-10) Last Admin: 07/10/18 11:29 Dose: 2 mg Sodium Polystyrene Sulfonate (Kayexalate) 45 gm PO NOW ONE Stop: 07/11/18 10:01 Last Admin: 07/11/18 10:43 Dose: 45 gm Spironolactone (Aldactone) [facility] [place] [facility] Admin: 07/11/18 08:17 Dose: 25 mg - Exam Quality Assessment: Reports: Supplemental Oxygen, DVT Prophylaxis. Denies: Central Line/PICC, Urine Catheter, Skin Breakdown, Restraints General: Reports: Alert, Oriented, Cooperative, No Acute Distress HEENT: Reports: Pupils Equal, Pupils Reactive, EOMI, Mucous Membr. Moist/[place] Neck: Reports: Supple, Trachea Midline, No JVD, No Thyromegaly, +2 Carotid Pulse wo Bruit. Denies: Lymphadenopathy, Thyromegaly Lungs: Reports: Normal Respiratory Effort, Rales (Stable mild bilateral basilar rales). Denies: Rhonchi, Rub, Wheezing Cardiovascular: Reports: Regular Rate, Regular Rhythm, No Murmurs. Denies: Gallops, Rubs GI/Abdominal Exam: Normal Bowel Sounds, Soft, Non-Tender, No Organomegaly, No Distention, No Abnormal Bruit, No Mass, Pelvis Stable. No: Guarding (Female) Exam: Deferred Rectal (Female) Exam: Deferred Back Exam: Reports: Normal Inspection, Full Range of Motion. Denies: CVA Tenderness (L), CVA Tenderness (R), Muscle Spasm Extremities: Normal Range of Motion, Non-Tender, Normal Capillary Refill, Pedal Edema (Stable +1 to +2 bilateral pedal edema with some improvement in the distal tibial regions; no evidence of infection, gout attack, etc. in her toes, etc.) Skin: Reports: Warm, Dry, Intact, Ecchymosis (Stable diffuse Diffuse mild to moderate ecchymosis and occasional petechiae), Other ([place]). Denies: Rash Neurological: Reports: No New Focal Deficit, Other (Stable moderate generalized weakness) Psy/Mental Status: Reports: Alert, Normal Affect, Normal Mood. Denies: Anxious , Depressed, Agitated, Suicidal Ideation, Homicidal Ideation, Hallucinations, Withdrawal Symptoms Physical Findings Comments:: Note significant cachexia *Q Meaningful Use (DIS) - VTE *Q VTE Mechanical Contraindications *Q: Tx/Proc Refused byPt VTE Pharmacological Contraindications *Q: Thrombocytopenia
[2018-07-13 11:04] VITALS: BP 102/58
== END 2018-07-13 11:15 | disposition other institution (70) | DRG 951 ==
LOC: LL.ED 18:49 → LL.MS 20:00
PROVIDERS: ADMIT Emergency Medicine; ATTEND Family Medicine
DX: Z51.5 Encounter for palliative care (principal); C91.10 Chronic lymphocytic leukemia of B-cell type not having achieved remission; I13.0 Hypertensive heart and chronic kidney disease with heart failure and stage 1 through stage 4 chronic kidney disease, or unspecified chronic kidney disease; Z68.1 Body mass index [BMI] 19.9 or less, adult; Z66 Do not resuscitate; D64.9 Anemia, unspecified; E83.51 Hypocalcemia; E11.42 Type 2 diabetes mellitus with diabetic polyneuropathy; N18.3 Chronic kidney disease, stage 3 (moderate); E87.5 Hyperkalemia; I50.9 Heart failure, unspecified; E11.22 Type 2 diabetes mellitus with diabetic chronic kidney disease; J44.9 Chronic obstructive pulmonary disease, unspecified; E79.0 Hyperuricemia without signs of inflammatory arthritis and tophaceous disease; F09 Unspecified mental disorder due to known physiological condition; E03.9 Hypothyroidism, unspecified; D69.6 Thrombocytopenia, unspecified; E53.8 Deficiency of other specified B group vitamins; H26.9 Unspecified cataract; H54.7 Unspecified visual loss; E78.00 Pure hypercholesterolemia, unspecified; N39.3 Stress incontinence (female) (male); M06.9 Rheumatoid arthritis, unspecified; R62.7 Adult failure to thrive; E86.0 Dehydration; Z79.899 Other long term (current) drug therapy; Z90.49 Acquired absence of other specified parts of digestive tract
CPT/HCPCS: 36000; 36415; 71045; 71046; 80048; 80053; 81001; 82550; 82553; 82607; 82728; 83540; 83550; 83880; 84443; 84484; 85025; 85027; 85379; 93005; 94640; 97163-GP; 97165-GO; 97530-GP; 99285; A9270-GY; J1940; J2060; J2270; J7030; J7620-GY